=== PATIENT | male | born 1995 | race African-American/Black ===

== ENCOUNTER 2017-12-19 11:53 | Emergency (ER) | payer OTHER ==
[~2017-12-19] VITALS: Ht 188 cm; Wt 78.4 kg
[2017-12-19 11:58] VITALS: TEMP 37.1; Ht 188 cm; Wt 78.4 kg
[2017-12-19] MEDS ORDERED: ONDANSETRON 4MG OD TAB PO STA (12:12)
[2017-12-19] MEDS ORDERED: SODIUM CHLORIDE 0.9% 1000ML 1,000 ML IV STA ×2 (12:12→14:15)
[2017-12-19] MEDS ORDERED: DiphenhydrAMINE HCL 50 MG/ML VIAL IV STA (12:12)
--- NOTE | 2017-12-19 12:18 | EMERGENCY ROOM VISIT NOTE ---
History First contact with patient: 12:03 Chief Complaint: NAUSEA Stated Complaint: NAUSEA/VOMITING Nursing Triage Summary: nausea and vomiting over the past 2-3 days. this happened last year and I was placed on antibiotics for ? stomach ulcers. History of Present Illness The patient is a 22 year old male who presents to the Emergency Room with complaints of nausea starting today and vomiting x 3 days. He hasn't eaten anything today. His stools have been soft, non bloody. He denies any recent travel, any ingestion of foreign or new foods, or any new medications. Pt takes Truvada, started in July. Pt has had multiple episodes of episodes in the past few years, he has gotten [employer] for it. He smokes Marijuana approx 3- 4x per week , denies any other illicit substances. No significant PMHx. No sick contacts. Review of Systems See HPI for pertinent positives and negatives. A total of ten systems were reviewed and were otherwise negative. Constitutional: No fever, No chills, No weight loss ENT: No hearing loss Respiratory: No cough, No sputum, No shortness of breath, No dyspnea on exertion Cardiovascular: No chest pain Abdomen: + nausea, + vomiting, No pain, No diarrhea, No constipation Musculoskeletal: No joint pain Genitourinary - Male: No hematuria, No dysuria Neurologic: No memory loss Psychiatric: No depression symptoms Endocrine: No fatigue Social History Smoking Status: Never Smoker Current/Historical Medications Scheduled Emtricitabine-Tenofovir Disopr (Truvada 133-200 mg), 1 TAB PO DAILY Physical Exam Vital Signs Date Time Temp Pulse Resp B/P (MAP) Pulse Ox O2 Delivery O2 Flow Rate FiO2 12/19/17 14:07 75 18 143/100 98 Room Air 12/19/17 11:58 37.1 78 18 130/92 97 Room Air Physical Exam Gen: No acute distress. Thin male. HEENT: Head - normocephalic and atraumatic. Pupils are equal, round, and reactive to light. No nystagmus. Extraocular eye muscles are intact and sclera are anicteric. Ears - bilaterally patent canals with noninjected tympanic membranes and no evidence of hemotympanum. Nose - moist nasal mucosa without discharge. Mouth - moist buccal mucosa. Oropharynx is nonerythematous and there is no tonsillar exudate or edema noted. Neck: Supple; no JVD, nuchal rigidity, cervical lymphadenopathy, or auscultated bruits. Heart: Regular rate and rhythm. There is a normal S1 and S2 with no murmurs, clicks, or gallops appreciated. Lungs: Clear to auscultation bilaterally with no wheezes, rales, or rhonchi. Abdomen: Soft, completely nontender, nondistended, with good bowel sounds. There are no palpable pulsatile masses or hepatosplenomegaly. There is no guarding, rigidity, or rebound noted. Extremities: No evidence of cyanosis, clubbing, or edema. There are easily palpable peripheral pulses. Neuro:The patient is awake and alert, oriented to day, time, and place. Muscle strength is 5/5 in all 4 extremities. The patient has equal filter tender jelly strength and equal pedal push and pull. There are no cerebellar signs. Medical Decision & Procedures ER Provider Diagnostic Interpretation: KUB CLINICAL HISTORY: 22 years-old Male presenting with Abdominal Pain - eval for obstruction. TECHNIQUE: Single supine view of the abdomen was obtained. COMPARISON: None. FINDINGS: Nonobstructive bowel gas pattern. No gross pneumoperitoneum. Allowing for bowel gas and stool, no calcifications to suggest nephrolithiasis. Osseous structures normal. Lung bases clear. IMPRESSION: 1. No acute intra-abdominal pathology. Laboratory Results 12/19/17 12:20 Red Blood Count 5.19, Mean Corpuscular Volume 88.8, Mean Corpuscular Hemoglobin 30.8, Mean Corpuscular Hemoglobin Concent 34.7, Mean Platelet Volume 9.7, Neutrophils (%) (Auto) 76.1, Lymphocytes (%) (Auto) 18.2, Monocytes (%) (Auto) 5.3, Eosinophils (%) (Auto) 0.0, Basophils (%) (Auto) 0.2, Neutrophils # (Auto) 8.33, Lymphocytes # (Auto) 1.99, Monocytes # (Auto) 0.58, Eosinophils # (Auto) 0.00, Basophils # (Auto) 0.02 12/19/17 12:20 Test 12/19/17 12:20 White Blood Count 10.94 K/uL (4.8-10.8) Red Blood Count 5.19 M/uL (4.7-6.1) Hemoglobin 16.0 g/dL (14.0-18.0) Hematocrit 46.1 % (42-52) Mean Corpuscular Volume 88.8 fL (80-100) Mean Corpuscular Hemoglobin 30.8 pg (25-34) Mean Corpuscular Hemoglobin Concent 34.7 g/dl (32-36) Platelet Count 238 K/uL (130-400) Mean Platelet Volume 9.7 fL (7.4-10.4) Neutrophils (%) (Auto) 76.1 % Lymphocytes (%) (Auto) 18.2 % Monocytes (%) (Auto) 5.3 % Eosinophils (%) (Auto) 0.0 % Basophils (%) (Auto) 0.2 % Neutrophils # (Auto) 8.33 K/uL (1.4-6.5) Lymphocytes # (Auto) 1.99 K/uL (1.2-3.4) Monocytes # (Auto) 0.58 K/uL (0.11-0.59) Eosinophils # (Auto) 0.00 K/uL (0-0.5) Basophils # (Auto) 0.02 K/uL (0-0.2) RDW Standard Deviation 43.3 fL (36.4-46.3) RDW Coefficient of Variation 13.2 % (11.5-14.5) Immature Granulocyte % (Auto) 0.2 % Immature Granulocyte # (Auto) 0.02 K/uL (0.00-0.02) Anion Gap 10.0 mmol/L (3-11) Est Creatinine Clear Calc Drug Dose 142.0 ml/min Estimated GFR () 138.3 Estimated GFR (Non- 119.3 BUN/Creatinine Ratio 8.8 (10-20) Calcium Level 10.2 mg/dl (8.5-10.1) Total Bilirubin 0.5 mg/dl (0.2-1) Aspartate Amino Transf (AST/SGOT) 21 U/L (15-37) Alanine Aminotransferase (ALT/SGPT) 38 U/L (12-78) Alkaline Phosphatase 85 U/L (45-117) Total Protein 9.7 gm/dl (6.4-8.2) Albumin 4.5 gm/dl (3.4-5.0) Globulin 5.2 gm/dl (2.5-4.0) Albumin/Globulin Ratio 0.9 (0.9-2) Lipase 130 U/L (73-393) Medications Administered Medications (Trade) Dose Ordered Sig/Lacy Route Start Time Stop Time Status Last Admin Dose Admin Sodium Chloride 1,000 ml @ 999 mls/hr Q1H1M STAT IV 12/19/17 12:12 12/19/17 13:12 DC 12/19/17 12:37 999 MLS/HR Ondansetron HCl (Zofran Odt) 4 mg NOW STAT PO 12/19/17 12:12 12/19/17 12:13 DC 12/19/17 12:38 4 MG Diphenhydramine HCl (Benadryl Inj) 12.5 mg NOW STAT IV 12/19/17 12:12 12/19/17 12:13 DC 12/19/17 12:38 12.5 MG Sodium Chloride 1,000 ml @ 999 mls/hr Q1H1M STAT IV 12/19/17 14:15 12/19/17 15:15 DC 12/19/17 14:34 999 MLS/HR Prochlorperazine Edisylate 5 mg/ Syringe 5 ml @ 5 mls/min NOW STAT IV 12/19/17 14:28 12/19/17 14:29 DC 12/19/17 14:32 5 MLS/MIN Medical Decision The patient's care and disposition was discussed with Dr. Rivera, Attending ED Physician. This is a 22M with nausea. Differential diagnosis include gastroenteritis, food borne illness, infections, obstruction, pancreatitis, appendicitis, diverticulitis, inflammatory bowel disease, GI bleed, biliary pathology, toxicologic as well as others were entertained. Triage Nursing notes were reviewed. ED Course included an extensive history and physical exam, labs. 12:00pm - Pt was seen and examined by resident. Initial orders placed. 1L NSS , 4mg ODT Zofran and 12.5mg IV Benadryl. A KUB was also ordered. 12:30pm - Case discussed with attending, Dr. Rivera. Lipase was added on. 2:15pm - Results reviewed with patient. Pt is still feeling nauseous - will be given additional 1L NSS and 5mg IV Compazine. 3:00pm - Pt reports feeling better. Told to follow up with PCP in one week. Pt will be discharged with 12 tabs of Zofran sent to his pharmacy. Pt discharged in good condition. The pt was informed about the findings as listed above. All questions were answered. Return instructions were outlined and the patient was discharged in good condition. The patient was referred to PCP for recheck of the current condition. Head Trauma GCS Score: 15 Impression Primary Impression: Nausea Departure Information Dispostion Home / Self-Care Condition GOOD Referrals No Doctor, Assigned (PCP) Patient Instructions [facility] [employer] Additional Instructions Follow up with PCP within one week. We recommend cutting down on Marijuana use in order to prevent a recurrence in the future. Resident Involvement: Resident Care Provided Care Provided: Pediatric Care ED
--- NOTE | 2017-12-19 12:33 | EMERGENCY ROOM VISIT NOTE ---
ED Visit Note First contact with patient: 12:03 The patient was seen and examined with Dr. Nigel GLOVER. I agree with the history, physical and findings. Please see the note for dispositions and details.
[2017-12-19 12:38] LABS: BASO % 0.2 %; BASO ABS # 0.02 K/uL (0-0.2); HEMATOCRIT 46.1 % (42-52); IG# 0.02 K/uL (0.00-0.02); LYMPH % 18.2 %; LYMPH ABS # 1.99 K/uL (1.2-3.4); MEAN CELL VOLUME 88.8 fL (80-100); MEAN CORPUSCULAR HEMOGLOBIN 30.8 pg (25-34); MEAN CORPUSCULAR HGB CONC 34.7 g/dl (32-36); MEAN PLATELET VOLUME 9.7 fL (7.4-10.4); MONO % 5.3 %; MONO ABS # 0.58 K/uL (0.11-0.59); NEUT % 76.1 %; NEUT ABS # 8.33 K/uL (1.4-6.5); PLATELET COUNT 238 K/uL (130-400); RED CELL DISTRIBUTION WIDTH CV 13.2 % (11.5-14.5); RED CELL DISTRIBUTION WIDTH SD 43.3 fL (36.4-46.3); WHITE BLOOD COUNT 10.94 K/uL (4.8-10.8)
[2017-12-19 12:59] LABS: ALBUMIN 4.5 gm/dl (3.4-5.0); CALCIUM 10.2 mg/dl (8.5-10.1); CREATININE 0.92 mg/dl (0.60-1.40); POTASSIUM 3.7 mmol/L (3.5-5.1); TOTAL PROTEIN 9.7 gm/dl (6.4-8.2)
--- NOTE | 2017-12-19 13:26 | DIAGNOSTIC IMAGING REPORT ---
KUB CLINICAL HISTORY: 22 years-old Male presenting with Abdominal Pain - eval for obstruction. TECHNIQUE: Single supine view of the abdomen was obtained. COMPARISON: None. FINDINGS: Nonobstructive bowel gas pattern. No gross pneumoperitoneum. Allowing for bowel gas and stool, no calcifications to suggest nephrolithiasis. Osseous structures normal. Lung bases clear. IMPRESSION: 1. No acute intra-abdominal pathology. Electronically signed by: Joseph Corona M.D. 12/19/2017 1:24 PM Dictated Date/Time: 12/19/2017 1:23 PM
[2017-12-19] MEDS ORDERED: EMTR1TAB13 PO (13:48)
[2017-12-19] MEDS ORDERED: PROCHLORPERAZINE INJ 5 MG in SYRINGE 4 ML IV STA (14:28)
[2017-12-19] MEDS ORDERED: ONDANSETRON 4MG OD TAB PO PRN (14:45)
[2017-12-19] MEDS ORDERED: ONDA4TAB10 SL (15:31)
[2017-12-19 15:37] VITALS: BP 124/70; PULSE 66; O2SAT 98
== END 2017-12-19 15:53 | disposition home or self-care (01) ==
LOC: C.EDB 11:54 → C.EDA 15:53
DX: R11.0 Nausea (principal)

== ENCOUNTER 2017-12-21 09:39 | Emergency (ER) | payer OTHER ==
[~2017-12-21] VITALS: Ht 193 cm; Wt 78.5 kg
[~2017-12-21 09:39] MED LIST: EMTR1TAB13 PO; ONDA4TAB10 SL
[2017-12-21 09:46] VITALS: Ht 193 cm; Wt 78.5 kg
[2017-12-21] MEDS ORDERED: KETOROLAC TROMETHAMINE 30 MG/ML VIAL IV STA (10:03)
[2017-12-21] MEDS ORDERED: ONDANSETRON INJ 2 MG/ML 2 ML VIAL IV STA (10:03)
[2017-12-21 10:14] LABS: BASO % 0.2 %; BASO ABS # 0.02 K/uL (0-0.2); EOS % 0.1 %; EOS ABS # 0.01 K/uL (0-0.5); HEMATOCRIT 44.8 % (42-52); HEMOGLOBIN 15.8 g/dL (14.0-18.0); IG# 0.03 K/uL (0.00-0.02); LYMPH ABS # 2.18 K/uL (1.2-3.4); MEAN CELL VOLUME 88.7 fL (80-100); MEAN CORPUSCULAR HEMOGLOBIN 31.3 pg (25-34); MEAN CORPUSCULAR HGB CONC 35.3 g/dl (32-36); MEAN PLATELET VOLUME 9.8 fL (7.4-10.4); MONO % 7.3 %; NEUT % 72.1 %; NEUT ABS # 7.87 K/uL (1.4-6.5); PLATELET COUNT 235 K/uL (130-400); RED CELL DISTRIBUTION WIDTH CV 13.3 % (11.5-14.5); RED CELL DISTRIBUTION WIDTH SD 43.4 fL (36.4-46.3); WHITE BLOOD COUNT 10.91 K/uL (4.8-10.8)
--- NOTE | 2017-12-21 10:21 | EMERGENCY ROOM VISIT NOTE ---
History Report prepared by Kimberly: Israel Resendiz Under the Supervision of: Dr. Fuad Reid M.D. First contact with patient: 09:50 Chief Complaint: VOMITING Stated Complaint: VOMITING History of Present Illness The patient is a 22 year old male who presents to the Emergency Room with complaints of persistent vomiting beginning a few days ago. The patient reports that anything he eats comes back up. He notes an associated throbbing abdominal pain. He denies recent travel, medical problems, contact with those who are sick , eating anything abnormal, abdominal surgeries, trauma, or heavy lifting. He reports that he had a normal bowel movement prior to arrival. He denies testicular or scrotal swelling. He states that he rarely uses alcohol and never uses tobacco. He reports occasional marijuana use, with the last use being one week ago. The patient reports that he takes Truvada for HIV prevention and prophylaxis, but does not have a formal diagnosis. The patient was seen and evaluated this Thursday, showing a negative KUB, WBC of 10, normal kidney function, normal LFTs, and normal lipase. Source of History: patient Onset: a few days ago Quality: other (vomiting) Timing: other (persistent) Modifying Factors (Worsening): eating Associated Symptoms: + abdominal pain (throbbing) Note: denies recent travel, medical problems, contact with those who are sick, eating anything abnormal, abdominal surgeries, trauma, testicular or scrotal swelling, or heavy lifting Review of Systems See HPI for pertinent positives and negatives. A total of ten systems were reviewed and were otherwise negative. Past Medical & Surgical The patient reports that he takes Truvada for HIV prevention and prophylaxis, but does not have a formal diagnosis. Family History Patient reports no known family medical history. Social History Smoking Status: Never Smoker Smokeless Tobacco Use: No Alcohol Use: other (rarely) Drug Use: marijuana (occasional but not regularly) Occupation Status: [employer] student Current/Historical Medications Scheduled Emtricitabine-Tenofovir Disopr (Truvada 133-200 mg), 1 TAB PO DAILY Scheduled PRN Metoclopramide (Reglan), 10 MG PO Q6H PRN for Nausea Allergies Coded Allergies: No Known Allergies (Unverified , 12/21/17) Physical Exam Vital Signs Date Time Temp Pulse Resp B/P (MAP) Pulse Ox O2 Delivery O2 Flow Rate FiO2 12/21/17 12:40 75 18 131/74 100 12/21/17 11:45 37.1 78 14 118/66 98 Room Air 12/21/17 09:46 36.5 70 16 127/86 94 Room Air Physical Exam GENERAL: Awake, alert, well-appearing, NAD. Wearing glasses. HENT: Normocephalic, atraumatic. EYES: Normal conjunctiva. Sclera non-icteric. PERRL. No anisocoria. NECK: Supple. No nuchal rigidity. FROM. RESPIRATORY: CTAB, no rhonchi, wheezing, crackles CARDIAC: RRR, no MRG ABDOMEN: Soft, ND, tender to epigastric and RUQ region to palpation, positive Orellana's sign, BS+ MSK: No chest wall TTP, no LE edema NEURO: GCS 15, CN 2-12 intact, moves all 4s on command SKIN: No rash or jaundice noted. Medical Decision & Procedures ER Provider Diagnostic Interpretation: Radiology results as stated below per my review and radiologist interpretation: BILIARY ULTRASOUND CLINICAL HISTORY: Right upper quadrant abdominal pain COMPARISON STUDY: No previous studies for comparison. FINDINGS: The pancreas appears sonographically normal. The liver appears sonographically normal. There is no right-sided hydronephrosis. There is no ductal dilatation. The common bile duct measures 3.5 mm. There is diffuse shadowing from the gallbladder fossa consistent with a stone filled gallbladder. The technologist reports a positive sonographic Orellana sign. IMPRESSION: 1. Diffuse shadowing from the gallbladder fossa, likely secondary to a stone filled gallbladder. 2. Positive sonographic Orellana sign 3. No evidence of ductal dilatation Electronically signed by: Juvenal Cruz M.D. 12/21/2017 11:41 AM Dictated Date/Time: 12/21/2017 11:39 AM Laboratory Results 12/21/17 10:00 Red Blood Count 5.05, Mean Corpuscular Volume 88.7, Mean Corpuscular Hemoglobin 31.3, Mean Corpuscular Hemoglobin Concent 35.3, Mean Platelet Volume 9.8, Neutrophils (%) (Auto) 72.1, Lymphocytes (%) (Auto) 20.0, Monocytes (%) (Auto) 7.3, Eosinophils (%) (Auto) 0.1, Basophils (%) (Auto) 0.2, Neutrophils # (Auto) 7.87, Lymphocytes # (Auto) 2.18, Monocytes # (Auto) 0.80, Eosinophils # (Auto) 0.01, Basophils # (Auto) 0.02 12/21/17 10:00 Test 12/21/17 10:00 White Blood Count 10.91 K/uL (4.8-10.8) Red Blood Count 5.05 M/uL (4.7-6.1) Hemoglobin 15.8 g/dL (14.0-18.0) Hematocrit 44.8 % (42-52) Mean Corpuscular Volume 88.7 fL (80-100) Mean Corpuscular Hemoglobin 31.3 pg (25-34) Mean Corpuscular Hemoglobin Concent 35.3 g/dl (32-36) Platelet Count 235 K/uL (130-400) Mean Platelet Volume 9.8 fL (7.4-10.4) Neutrophils (%) (Auto) 72.1 % Lymphocytes (%) (Auto) 20.0 % Monocytes (%) (Auto) 7.3 % Eosinophils (%) (Auto) 0.1 % Basophils (%) (Auto) 0.2 % Neutrophils # (Auto) 7.87 K/uL (1.4-6.5) Lymphocytes # (Auto) 2.18 K/uL (1.2-3.4) Monocytes # (Auto) 0.80 K/uL (0.11-0.59) Eosinophils # (Auto) 0.01 K/uL (0-0.5) Basophils # (Auto) 0.02 K/uL (0-0.2) RDW Standard Deviation 43.4 fL (36.4-46.3) RDW Coefficient of Variation 13.3 % (11.5-14.5) Immature Granulocyte % (Auto) 0.3 % Immature Granulocyte # (Auto) 0.03 K/uL (0.00-0.02) Anion Gap 9.0 mmol/L (3-11) Est Creatinine Clear Calc Drug Dose 140.7 ml/min Estimated GFR () 136.5 Estimated GFR (Non- 117.8 BUN/Creatinine Ratio 7.0 (10-20) Calcium Level 9.9 mg/dl (8.5-10.1) Total Bilirubin 0.8 mg/dl (0.2-1) Direct Bilirubin 0.2 mg/dl (0-0.2) Aspartate Amino Transf (AST/SGOT) 17 U/L (15-37) Alanine Aminotransferase (ALT/SGPT) 33 U/L (12-78) Alkaline Phosphatase 85 U/L (45-117) Total Protein 9.4 gm/dl (6.4-8.2) Albumin 4.4 gm/dl (3.4-5.0) Lipase 285 U/L (73-393) Laboratory results reviewed by me Medications Administered Medications (Trade) Dose Ordered Sig/Lacy Route Start Time Stop Time Status Last Admin Dose Admin Ondansetron HCl (Zofran Inj) 4 mg NOW STAT IV 12/21/17 10:03 12/21/17 10:07 DC 12/21/17 10:18 4 MG Ketorolac Tromethamine (Toradol Inj) 30 mg NOW STAT IV 12/21/17 10:03 12/21/17 10:07 DC 12/21/17 10:19 30 MG Sodium Chloride 500 ml @ 999 mls/hr Q31M STAT IV 12/21/17 11:00 12/21/17 11:30 DC 12/21/17 11:00 999 MLS/HR Potassium Chloride (Klor-Con M10) 10 meq STK-MED ONCE .ROUTE 12/21/17 11:08 12/21/17 11:09 DC 12/21/17 11:41 10 MEQ Famotidine (Pepcid Tab) 20 mg NOW ONCE PO 12/21/17 12:00 12/21/17 12:02 DC 12/21/17 12:30 20 MG Al Hydroxide/Mg Hydroxide (Maalox Susp) 30 ml STK-MED ONCE .ROUTE 12/21/17 12:27 12/21/17 12:28 DC 12/21/17 12:30 30 ML Lidocaine HCl (Viscous Lidocaine 2% Soln) 20 ml STK-MED ONCE .ROUTE 12/21/17 12:27 12/21/17 12:28 DC 12/21/17 12:30 20 ML ECG Per My Interpretation Indication: vomiting Rate (beats per minute): 73 Rhythm: sinus rhythm Findings: other (Normal intervals and axis. No STS changes. TWI in V2.) ED Course 0958: The patient was evaluated in room B11B. A complete history and physical exam was performed. 1153: I consulted Amna Sowcik, PA-C: General Surgery. The nurse will call the patient today or tomorrow, and he will follow up with Dr. Sandoval. 1230: I reevaluated the patient. Discussed results and discharge instructions: He verbalized understanding and agreement. The patient is ready for discharge. Medical Decision Nursing notes reviewed. Ancillary studies and prior records reviewed. The patient is a 22 year old male who presents to the Emergency Room with complaints of persistent vomiting beginning a few days ago. Differential diagnosis: Etiologies such as gastroenteritis, food borne illness, infections, appendicitis , diverticulitis, inflammatory bowel disease, obstruction, GI bleed, biliary pathology, as well as others were entertained. Patient was seen and evaluated the bedside. 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 Patient does live in [place]. Patient denies any sort of infectious symptoms but has had some persistent abdominal discomfort which she describes as diffuse. The patient has had associated nausea with vomiting. Patient denies any sick contacts treatment well water, antibiotics, or other infectious symptoms. The patient also denies any recent trauma or heavy lifting. On exam the patient does have some right upper quadrant epigastric discomfort. Of note the patient does take Truvada for HIV prophylaxis and prevention but has no formal diagnosis of HIV or AIDS. Patient did have blood work completed along with right upper quadrant ultrasound. Patient was feeling improved thereafter although did have some mild upset stomach. Patient's ultrasound did show a positive Orellana sign and the patient of note noted a fair amount of shadow consistent with likely gallstones. There is no CBD dilatation. I did give the patient recommendations given his biliary colic. I also did discuss the case with the on-call general surgery physician acquisitions assistant who stated that she would make a note and the patient would be called either today or tomorrow for an outpatient follow-up appointment. The patient was told return if any worsening symptoms or can tolerate p.o. Patient was given strict follow-up, discharge, and return precautions. All questions were answered. Patient was deemed suitable for outpatient follow-up at this time. Patient agreed with the plan of care and was safely discharged home. Medication Reconcilliation Current Medication List: was personally reviewed by me Blood Pressure Screening Patient's blood pressure: Normal blood pressure Blood pressure disposition: Did not require urgent referral Consults Time Called: 1153 Consulting Physician: Amna Whitten PA-C: General Surgery Returned Call: 1156 I consulted Amna Whitten PA-C: General Surgery. The nurse will call the patient today or tomorrow, and he will follow up with Dr. Sandoval. Impression Primary Impression: Biliary colic Additional Impressions: Cholelithiasis Hypokalemia Scribe Attestation The scribe's documentation has been prepared under my direction and personally reviewed by me in its entirety. I confirm that the note above accurately reflects all work, treatment, procedures, and medical decision making performed by me. Departure Information Dispostion Home / Self-Care Prescriptions Metoclopramide (Reglan) 10 Mg Tab 10 MG PO Q6H Y for Nausea, #6 TAB NAUSEA Prov: Fuad Reid M.D. 12/21/17 Referrals Josh. Reagan M.D. (PCP) Forms HOME CARE DOCUMENTATION FORM, IMPORTANT VISIT INFORMATION Patient Instructions ED Gallstone W Biliary Colic, Gallstones Dc, My [facility] Additional Instructions Please return to the emergency department if you have worsening or recurrent symptoms not amenable to at-home treatment. Please call for a follow-up appointment with her primary care physician. Please take your medications as prescribed. If you have other concerns and/or complaints please feel free to also call your primary care physician's office or return the ED for further evaluation, management, and treatment. You may take tylenol 650 mg every 6 hours as needed for pain/fever unless told by your physician to not take it or have liver problems. Take your medications as prescribed. Please follow-up with your PCP about recommendations for Truvada and HIV prevention and prophylaxis. To help with your gallstone/reflux type symptoms please consider smaller more frequent meals. Avoid fatty or fried foods. Please do not lay down after eating. Consider avoiding spicy, citrus, peppermint, chocolate. Consider taking a PPI like Nexium 20 mg daily or an antihistamine like Pepcid 20 mg twice daily. Sitting upright may help improve your symptoms also. Do not lay down after eating or drinking. You may also try things like Tums or Maalox. You have been examined and treated today on an emergency basis only. This is not a substitute for, or an effort to provide, complete comprehensive medical care. It is impossible to recognize and treat all injuries or illnesses in a single emergency department visit. It is therefore important that you follow up closely with [facility], your PCP, and/or your specialist(s). Call as soon as possible for an appointment. Thank you for your time and consideration. I look forward to speaking with you again soon. Please don't hesitate to call us if you have any questions. Problem Qualifiers Additional Impressions: Cholelithiasis Cholelithiasis location: gallbladder Cholecystitis presence: without cholecystitis Biliary obstruction: without biliary obstruction Qualified Codes: K80.20 - Calculus of gallbladder without cholecystitis without obstruction
[2017-12-21 10:36] LABS: ALBUMIN 4.4 gm/dl (3.4-5.0); CALCIUM 9.9 mg/dl (8.5-10.1); CREATININE 0.93 mg/dl (0.60-1.40); POTASSIUM 3.4 mmol/L (3.5-5.1); TOTAL PROTEIN 9.4 gm/dl (6.4-8.2)
[2017-12-21] MEDS ORDERED: POTASSIUM CHLORIDE 20 MEQ TABCR PO STA (11:00)
[2017-12-21] MEDS ORDERED: SODIUM CHLORIDE 0.9% 500ML 500 ML IV STA (11:00)
[2017-12-21] MEDS ORDERED: POTASSIUM CHLORIDE 10 MEQ TABCR ONE (11:08)
--- NOTE | 2017-12-21 11:42 | DIAGNOSTIC IMAGING REPORT ---
BILIARY ULTRASOUND CLINICAL HISTORY: Right upper quadrant abdominal pain COMPARISON STUDY: No previous studies for comparison. FINDINGS: The pancreas appears sonographically normal. The liver appears sonographically normal. There is no right-sided hydronephrosis. There is no ductal dilatation. The common bile duct measures 3.5 mm. There is diffuse shadowing from the gallbladder fossa consistent with a stone filled gallbladder. The technologist reports a positive sonographic Orellana sign. IMPRESSION: 1. Diffuse shadowing from the gallbladder fossa, likely secondary to a stone filled gallbladder. 2. Positive sonographic Orellana sign 3. No evidence of ductal dilatation Electronically signed by: Juvenal Cruz M.D. 12/21/2017 11:41 AM Dictated Date/Time: 12/21/2017 11:39 AM
[2017-12-21 11:45] VITALS: TEMP 37.1
[2017-12-21] MEDS ORDERED: GI COCKTAIL PO STA (11:55)
[2017-12-21] MEDS ORDERED: FAMOTIDINE 20 MG TAB PO ONE (12:00)
[2017-12-21] MEDS ORDERED: METO-157 PO (12:14)
[2017-12-21] MEDS ORDERED: ALUMINUM/MAGNESIUM SUSP 30 ML UDC ONE (12:27)
[2017-12-21] MEDS ORDERED: LIDOCAINE HCL 2% VISC SOLN 20 ML UDC ONE (12:27)
[2017-12-21 12:40] VITALS: BP 131/74; PULSE 75; O2SAT 100
== END 2017-12-21 12:43 | disposition home or self-care (01) ==
LOC: C.EDB 09:42
DX: K80.20 Calculus of gallbladder without cholecystitis without obstruction (principal); E87.6 Hypokalemia; Z79.899 Other long term (current) drug therapy

== ENCOUNTER 2019-10-11 09:16 | Observation (INO) ==
[2019-10-11] MEDS ORDERED: ONDANSETRON INJ 2 MG/ML 2 ML VIAL IV STA (09:45)
[2019-10-11] MEDS ORDERED: SODIUM CHLORIDE 0.9% 1000ML 1,000 ML IV ONE (09:45)
[2019-10-11] MEDS ORDERED: ACETAMINOPHEN 500 MG TAB PO STA (10:02)
--- NOTE | 2019-10-11 10:14 | Emergency Department Note ---
History of Present Illness General Chief complaint: Abdominal Pain Stated complaint: POS COVID, ILLNESS Time Seen by Provider: 10/11/19 09:40 History of Present Illness Provider complaint: Nausea and vomiting Onset (ago): day(s) 2 Location: abdomen Maximum Pain Intensity: 7 Current Pain Intensity: 7 Quality: + other (Cramping) Relieved By: + none 24-year-old male presents emergency department with nausea and vomiting. He states that he was seen in the emergency department yesterday and went home and smokes marijuana and then his nausea and vomiting started getting worse. He reports vomiting 12 times since yesterday. No hematemesis coffee-ground emesis or bilious vomiting. He notes he spiked a fever also today. Home Medications Home Medications Medication Instructions Recorded Confirmed Type emtricitabine-tenofovir (TDF) 1 tab PO QAM #0 12/19/17 10/11/19 History [Truvada] ondansetron 4 mg PO Q8H PRN #30 tab 10/10/19 10/11/19 Rx Allergies Allergy/AdvReac Type Severity Reaction Status Date / Time No Known Allergies Allergy Unverified 10/11/19 12:39 Past Med/Surg History Medical History COVID-19 virus detected On pre-exposure prophylaxis for HIV Proctitis Surgical History History of cholecystectomy (Acute) History of surgery (Acute) left tibia and fibula Social History Preferred Language: Indonesian Communication Ability: Effective 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 Beliefs That Will Affect Care: None marital status: Single Current Living Situation: Alone current occupational status: student Feels Safe at Home: Yes Smoking Status: Never smoker Second Hand Exposure: No ; Hx Alcohol Use: Yes Alcohol type: beer, wine and hard liquor Hx Substance Use: Yes substance use type: marijuana Sexual Orientation Comment: homosexual Sexual Activity: has been sexually active within the last 12 months Review of Systems A total of 10 systems reviewed and were otherwise negative Physical Exam Vital Signs Vital Signs - 24 hr 10/11/19 09:35 10/11/19 11:28 10/11/19 12:00 Temperature 38.1 C H Temperature Source Oral Pulse Rate 59 L 86 Pulse Rate [Right Finger] 59 L 74 Pulse Rate from SpO2 Sensor 85 Pulse Rhythm Regular Pulse Rhythm [Right Finger] Regular Pulse Strength [Right Finger] Normal Respiratory Rate 18 16 18 Respiratory Effort / Characteristics Non-Labored Spontaneous Respiratory Depth Normal Respiratory Pattern Regular Blood Pressure 160/110 H 127/79 Blood Pressure [Left Arm] 120/66 Blood Pressure [Right Arm] 160/110 H Blood Pressure Mean 126 90 Blood Pressure Mean [Left Arm] 84 Blood Pressure Mean [Right Arm] 126 Pulse Oximetry 100 100 99 Oxygen Delivery Method Room Air Room Air Room Air Sepsis Recent Fever Within 48 Hours Yes Sepsis Action Taken by Nursing No Action Required 10/11/19 12:42 10/11/19 13:00 10/11/19 13:24 Temperature 37.6 C H Temperature Source Oral Pulse Rate 87 77 Pulse Rate [Right Finger] Pulse Rate from SpO2 Sensor 91 H 83 Pulse Rhythm Pulse Rhythm [Right Finger] Pulse Strength [Right Finger] Respiratory Rate 15 13 Respiratory Effort / Characteristics Respiratory Depth Respiratory Pattern Blood Pressure 127/80 137/84 Blood Pressure [Left Arm] Blood Pressure [Right Arm] Blood Pressure Mean 90 98 Blood Pressure Mean [Left Arm] Blood Pressure Mean [Right Arm] Pulse Oximetry 97 99 Oxygen Delivery Method Room Air Room Air Sepsis Recent Fever Within 48 Hours Sepsis Action Taken by Nursing 10/11/19 13:30 10/11/19 14:00 10/11/19 14:30 Temperature Temperature Source Pulse Rate 85 69 69 Pulse Rate [Right Finger] Pulse Rate from SpO2 Sensor 83 67 70 Pulse Rhythm Pulse Rhythm [Right Finger] Pulse Strength [Right Finger] Respiratory Rate 16 13 19 Respiratory Effort / Characteristics Respiratory Depth Respiratory Pattern Blood Pressure 136/81 141/76 H Blood Pressure [Left Arm] Blood Pressure [Right Arm] Blood Pressure Mean 99 92 Blood Pressure Mean [Left Arm] Blood Pressure Mean [Right Arm] Pulse Oximetry 99 99 99 Oxygen Delivery Method Room Air Room Air Room Air Sepsis Recent Fever Within 48 Hours Sepsis Action Taken by Nursing 10/11/19 15:00 10/11/19 15:30 10/11/19 16:30 Temperature Temperature Source Pulse Rate 76 71 72 Pulse Rate [Right Finger] Pulse Rate from SpO2 Sensor 78 71 91 H Pulse Rhythm Pulse Rhythm [Right Finger] Pulse Strength [Right Finger] Respiratory Rate 11 L 13 19 Respiratory Effort / Characteristics Respiratory Depth Respiratory Pattern Blood Pressure 151/95 H 138/81 132/80 Blood Pressure [Left Arm] Blood Pressure [Right Arm] Blood Pressure Mean 99 93 90 Blood Pressure Mean [Left Arm] Blood Pressure Mean [Right Arm] Pulse Oximetry 98 99 96 Oxygen Delivery Method Room Air Room Air Room Air Sepsis Recent Fever Within 48 Hours Sepsis Action Taken by Nursing 10/11/19 17:00 Temperature Temperature Source Pulse Rate 85 Pulse Rate [Right Finger] Pulse Rate from SpO2 Sensor 83 Pulse Rhythm Pulse Rhythm [Right Finger] Pulse Strength [Right Finger] Respiratory Rate 19 Respiratory Effort / Characteristics Respiratory Depth Respiratory Pattern Blood Pressure 133/102 H Blood Pressure [Left Arm] Blood Pressure [Right Arm] Blood Pressure Mean 110 Blood Pressure Mean [Left Arm] Blood Pressure Mean [Right Arm] Pulse Oximetry 99 Oxygen Delivery Method Sepsis Recent Fever Within 48 Hours Sepsis Action Taken by Nursing Physical Exam GENERAL: He is oriented to person, place, and time. He appears well-developed and well-nourished. He does not appear distressed. HENT: Exam performed. - Head: Normocephalic and atraumatic. - Right Ear: External ear normal. No mastoid tenderness. - Left Ear: External ear normal. No mastoid tenderness. - Mouth/Throat: The oropharynx is clear and moist. No trismus in the jaw. No dental abscesses or uvula swelling. No oropharyngeal exudate or tonsillar abscesses. EYES: Conjunctivae and EOM are normal. Pupils are equal, round, and reactive to light. Right eye exhibits no discharge. Left eye exhibits no discharge. No scleral icterus. NECK: Normal range of motion. Neck supple. No JVD present. No spinous process tenderness present. No carotid bruit present. No rigidity. No tracheal deviation and normal range of motion present. No Brudzinski's sign and no Kernig's sign noted. CV: Normal rate, regular rhythm, normal heart sounds and intact distal pulses. There is no peripheral edema. Palpable radial pulses bue. PULM/CHEST: Effort normal and breath sounds normal. No respiratory distress. No stridor. He has no wheezes. He has no rales. - Chest Wall: He exhibits no tenderness. ABD: The abdomen is soft. Bowel sounds are normal. He has no distension. No mass is present. There is no tenderness. There is no rebound, no guarding, no Orellana's sign and no tenderness at McBurney's point. Rovsig negative. MUSC/SKEL: Normal range of motion. There is no peripheral edema, tenderness or deformity. LYMPH: No cervical adenopathy. NEURO: He is alert and oriented to person, place, and time. He has normal strength. No cranial nerve deficit or sensory deficit. Coordination and gait normal. GCS eye subscore is 4. GCS verbal subscore is 5. GCS motor subscore is 6. Cerebellar tests wnl. SKIN: Skin is warm and dry. He is not diaphoretic. PSYCH: He has a normal mood and affect. Behavior is normal. Judgment and thought content normal. Course Course 1000: The patient was evaluated in room B8. A complete history and physical exam was performed. EMR reviewed. I did see the patient yesterday. His COVID-19 screening from yesterday was negative. His labs yesterday showed mild leukocytosis. CT of the abdomen was negative. Patient is homosexual and states he is never tested positive for HIV. He is on prep for prophylaxis. Patient states he has never tested positive for HIV and gets tested every 3 months, last test was 3 months ago. I did asked the patient if he wants to be screened here today for HIV which she was in agreement to. 1315: Vital signs proved. Patient's labs within normal limits with the exception of a potassium of 3.2. White blood cell count has improved. Patient tolerating p.o. in the emergency department. Patient still reporting pain and nausea. It is unclear if this is due to the patient's marijuana consumption however would not explain his fever. Given the recurrent visits and the patient still feeling uncomfortable with nausea, the patient will be admitted for intractable nausea and vomiting.[facility] hospitalist Dr. Nichole was notified of the patient. Administered Medications Discontinued Medications Acetaminophen (Tylenol) 1,000 mg PO NOW STA Stop: 10/11/19 10:03 Last Admin: 10/11/19 11:30 Dose: Not Given Documented by: [id number] Acetaminophen (Ofirmev) 1,000 mg IV ONCE STA Stop: 10/11/19 10:41 Last Admin: 10/11/19 11:40 Dose: 1,000 mg Documented by: [id number] Al Hydrox/Mg Hydrox/Simethicone () 1 dose PO ONE ONE Stop: 10/11/19 14:01 Last Admin: 10/11/19 14:14 Dose: 1 dose Documented by: [id number] Sodium Chloride (Nss 1000ml) 1,000 mls @ 999 mls/hr IV .Q1H1M ONE Stop: 10/11/19 10:45 Last Infusion: 10/11/19 12:21 Dose: 0 mls/hr Documented by: [id number] Admin: 10/11/19 10:37 Dose: 999 mls/hr Documented by: [id number] Ketorolac Tromethamine (Toradol) 15 mg IV NOW STA Stop: 10/11/19 10:41 Last Admin: 10/11/19 11:37 Dose: 15 mg Documented by: [id number] Ketorolac Tromethamine (Toradol) 15 mg IV NOW STA Stop: 10/11/19 14:00 Last Admin: 10/11/19 14:11 Dose: 15 mg Documented by: [id number] Ondansetron HCl (Zofran) 4 mg IV NOW STA Stop: 10/11/19 09:46 Last Admin: 10/11/19 10:37 Dose: 4 mg Documented by: [id number] Potassium Chloride (Klor-Con M10) 40 meq PO NOW STA Stop: 10/11/19 14:00 Last Admin: 10/11/19 14:13 Dose: 40 meq Documented by: [id number] Medical Decision Making Laboratory Data Result diagrams: 10/11/19 10:09 10/11/19 10:09 Lab Results 10/11/19 10/11/19 10/11/19 Range/Units 10:09 10:09 10:09 WBC 11.23 H (4.8-10.8) K/uL RBC 4.74 (4.7-6.1) M/uL Hgb 14.8 (14.0-18.0) g/dL Hct 43.0 (42-52) % MCV 90.7 (80-100) fL MCH 31.2 (25-34) pg MCHC 34.4 (32-36) g/dL RDW Std Deviation 43.8 (36.4-46.3) fL RDW Coeff of Marilyn 13.2 (11.5-14.5) % Plt Count 209 (130-400) K/uL MPV 10.1 (7.4-10.4) fL Immature Gran % (Auto) 0.2 % Neut % (Auto) 83.0 % Lymph % (Auto) 12.7 % [place] % (Auto) 4.0 % Eos % (Auto) 0.0 % Baso % (Auto) 0.1 % Immature Gran # (Auto) 0.02 (0.00-0.02) K/uL Neut # (Auto) 9.32 H (1.4-6.5) K/uL Lymph # (Auto) 1.43 (1.2-3.4) K/uL [place] # (Auto) 0.45 (0.11-0.59) K/uL Eos # (Auto) 0.00 (0-0.5) K/uL Baso # (Auto) 0.01 (0-0.2) K/uL Sodium 135 L (136-145) mmol/L Potassium 3.2 L (3.5-5.1) mmol/L Chloride 104 (98-107) mmol/L Carbon Dioxide 24 (21-32) mmol/L Anion Gap 7.0 (3-11) BUN 5 L (7-18) mg/dl Creatinine 0.85 (0.6-1.4) mg/dl Est Cr Clr Drug Dosing 158.5 ml/min Est GFR ( Amer) 143.4 Est GFR (Non-Af Amer) 123.7 BUN/Creatinine Ratio 6.4 L (10-20) Glucose 105 H (70-99) mg/dl Lactate (0.4-2.0) mmol/L Calcium 9.6 (8.5-10.1) mg/dl Total Bilirubin 0.9 (0.2-1) mg/dl Direct Bilirubin 0.2 (0-0.2) mg/dl AST 16 (15-37) U/L ALT 43 (12-78) U/L Alkaline Phosphatase 69 (45-117) U/L Total Protein 8.3 H (6.4-8.2) gm/dl Albumin 4.4 (3.4-5.0) gm/dl Lipase 136 (73-393) U/L Adenovirus (PCR) (NotDetected) B. pertussis DNA (PCR) (NotDetected) B.parapertussis DNA PCR (NotDetected) C. pneumoniae DNA (PCR) (NotDetected) Coronavirus OC43 (PCR) (NotDetected) Coronavirus HKU1 (PCR) (NotDetected) Coronavirus 229E (PCR) (NotDetected) Coronavirus NL63 (PCR) (NotDetected) HIV 1&2 Ab/P24 Ag 4thGn Neg (Neg) Human Metapneumovir PCR (NotDetected) Influenza Type A (PCR) (NotDetected) Influenza Type B (PCR) (NotDetected) M. pneumoniae (PCR) (NotDetected) Parainfluenza 1 (PCR) (NotDetected) Parainfluenza 2 (PCR) (NotDetected) Parainfluenza 3 (PCR) (NotDetected) Parainfluenza 4 (PCR) (NotDetected) RSV (PCR) (NotDetected) Entero/Rhino (PCR) (NotDetected) 10/11/19 10/11/19 Range/Units 10:38 11:32 WBC (4.8-10.8) K/uL RBC (4.7-6.1) M/uL Hgb (14.0-18.0) g/dL Hct (42-52) % MCV (80-100) fL MCH (25-34) pg MCHC (32-36) g/dL RDW Std Deviation (36.4-46.3) fL RDW Coeff of Marilyn (11.5-14.5) % Plt Count (130-400) K/uL MPV (7.4-10.4) fL Immature Gran % (Auto) % Neut % (Auto) % Lymph % (Auto) % [place] % (Auto) % Eos % (Auto) % Baso % (Auto) % Immature Gran # (Auto) (0.00-0.02) K/uL Neut # (Auto) (1.4-6.5) K/uL Lymph # (Auto) (1.2-3.4) K/uL [place] # (Auto) (0.11-0.59) K/uL Eos # (Auto) (0-0.5) K/uL Baso # (Auto) (0-0.2) K/uL Sodium (136-145) mmol/L Potassium (3.5-5.1) mmol/L Chloride (98-107) mmol/L Carbon Dioxide (21-32) mmol/L Anion Gap (3-11) BUN (7-18) mg/dl Creatinine (0.6-1.4) mg/dl Est Cr Clr Drug Dosing ml/min Est GFR ( Amer) Est GFR (Non-Af Amer) BUN/Creatinine Ratio (10-20) Glucose (70-99) mg/dl Lactate 1.5 (0.4-2.0) mmol/L Calcium (8.5-10.1) mg/dl Total Bilirubin (0.2-1) mg/dl Direct Bilirubin (0-0.2) mg/dl AST (15-37) U/L ALT (12-78) U/L Alkaline Phosphatase (45-117) U/L Total Protein (6.4-8.2) gm/dl Albumin (3.4-5.0) gm/dl Lipase (73-393) U/L Adenovirus (PCR) Not Detected (NotDetected) B. pertussis DNA (PCR) Not Detected (NotDetected) B.parapertussis DNA PCR Not Detected (NotDetected) C. pneumoniae DNA (PCR) Not Detected (NotDetected) Coronavirus OC43 (PCR) Not Detected (NotDetected) Coronavirus HKU1 (PCR) Not Detected (NotDetected) Coronavirus 229E (PCR) Not Detected (NotDetected) Coronavirus NL63 (PCR) Not Detected (NotDetected) HIV 1&2 Ab/P24 Ag 4thGn (Neg) Human Metapneumovir PCR Not Detected (NotDetected) Influenza Type A (PCR) Not Detected (NotDetected) Influenza Type B (PCR) Not Detected (NotDetected) M. pneumoniae (PCR) Not Detected (NotDetected) Parainfluenza 1 (PCR) Not Detected (NotDetected) Parainfluenza 2 (PCR) Not Detected (NotDetected) Parainfluenza 3 (PCR) Not Detected (NotDetected) Parainfluenza 4 (PCR) Not Detected (NotDetected) RSV (PCR) Not Detected (NotDetected) Entero/Rhino (PCR) Not Detected (NotDetected) Imaging Data Radiologist's Impression: PA CHEST RADIOGRAPH AND UPRIGHT AND SUPINE AP RADIOGRAPHS OF THE ABDOMEN CLINICAL HISTORY: Abdominal pain. Vomiting. COMPARISON STUDY: Chest radiograph and CT of the abdomen and pelvis October 10, 2019. FINDINGS: Lung volumes are normal. Lungs are clear. No pneumothorax or pleural effusion is noted. Cardiac size is normal. Mediastinal contours are normal. There are cholecystectomy clips. There is no free air. There is no evidence for a bowel obstruction. No urinary calculi are identified. IMPRESSION: 1. No free air or evidence of bowel obstruction. 2. No acute cardiopulmonary findings. ACT 112: Negative or not required by law. Electronically signed by: Gigi Olmos M.D. 10/11/2019 12:34 PM Dictated: 10/11/19 1233 Transcribed: 10/11/19 1233 [facility] Narrative 1000: The patient was evaluated in room B8. A complete history and physical exam was performed. EMR reviewed. I did see the patient yesterday. His COVID-19 screening from yesterday was negative. His labs yesterday showed mild leukocytosis. CT of the abdomen was negative. Patient is homosexual and states he is never tested positive for HIV. He is on prep for prophylaxis. Patient states he has never tested positive for HIV and gets tested every 3 months, last test was 3 months ago. I did asked the patient if he wants to be screened here today for HIV which she was in agreement to. 1315: Vital signs proved. Patient's labs within normal limits with the exception of a potassium of 3.2. White blood cell count has improved. Patient tolerating p.o. in the emergency department. Patient still reporting pain and nausea. It is unclear if this is due to the patient's marijuana consumption however would not explain his fever. Given the recurrent visits and the patient still feeling uncomfortable with nausea, the patient will be admitted for intractable nausea and vomiting.[facility] hospitalist Dr. Nichole was notified of the patient. Impression & Plan Intractable nausea and vomiting, Cannabis abuse Discharge Plan Visit Data Chief Complaint: Abdominal Pain Stated Complaint: POS COVID, ILLNESS ED Provider: Hollis Chin Discharge Problem: Intractable nausea and vomiting, Cannabis abuse Patient Disposition: Being Evaluated by Hospitalist Forms Stand Alone Forms: My [facility] Prescriptions Prescriptions: No Action Truvada 200-300 mg Tablet 1 tab PO QAM Qty: 0 RF: 0 ondansetron 4 mg tablet,disintegrating 4 mg PO Q8H PRN (Reason: nausea and vomiting) Qty: 30 RF: 0 Referrals Referrals: Genaro Matos [Primary Care Provider] -
[2019-10-11 10:29] LABS: Basophils # (auto) 0.01 K/uL (0-0.2); Basophils % (auto) 0.1 %; Hemoglobin 14.8 g/dL (14.0-18.0); Immature Granulocytes # (auto) 0.02 K/uL (0.00-0.02); Immature Granulocytes % (auto) 0.2 %; Lymphocytes # (auto) 1.43 K/uL (1.2-3.4); Lymphocytes % (auto) 12.7 %; Mean Corpuscular Hemoglobin 31.2 pg (25-34); Mean Corpuscular Hgb Conc 34.4 g/dL (32-36); Mean Corpuscular Volume 90.7 fL (80-100); Mean Platelet Volume 10.1 fL (7.4-10.4); Monocytes # (auto) 0.45 K/uL (0.11-0.59); Neutrophils # (auto) 9.32 K/uL (1.4-6.5); Platelet Count 209 K/uL (130-400); RDW Coefficient of Variation 13.2 % (11.5-14.5); RDW Standard Deviation 43.8 fL (36.4-46.3); Red Blood Count 4.74 M/uL (4.7-6.1); White Blood Count 11.23 K/uL (4.8-10.8)
[2019-10-11] MEDS ORDERED: ACETAMINOPHEN 1000 MG/100 ML IV IV STA (10:40)
[2019-10-11] MEDS ORDERED: KETOROLAC TROMETHAMINE 15 MG/ML VIAL IV STA ×2 (10:40→13:59)
[2019-10-11 10:48] LABS: Albumin Level 4.4 gm/dl (3.4-5.0); BUN Creatinine Ratio 6.4 (10-20); Bilirubin Direct 0.2 mg/dl (0-0.2); Calcium 9.6 mg/dl (8.5-10.1); Creatinine Clr Calc Pharmacy 158.5 ml/min; Est GFR (African American) 143.4; Est GFR (Non-African American) 123.7; Potassium 3.2 mmol/L (3.5-5.1)
[2019-10-11 10:51] LABS: Bilirubin,Total 0.9 mg/dl (0.2-1); Total Protein 8.3 gm/dl (6.4-8.2)
--- NOTE | 2019-10-11 12:36 | XRay Report ---
PA CHEST RADIOGRAPH AND UPRIGHT AND SUPINE AP RADIOGRAPHS OF THE ABDOMEN CLINICAL HISTORY: Abdominal pain. Vomiting. COMPARISON STUDY: Chest radiograph and CT of the abdomen and pelvis October 10, 2019. FINDINGS: Lung volumes are normal. Lungs are clear. No pneumothorax or pleural effusion is noted. Ca rdiac size is normal. Mediastinal contours are normal. There are cholecystectomy clips. There is no f ree air. There is no evidence for a bowel obstruction. No urinary calculi are identified. IMPRESSION: 1. No free air or evidence of bowel obstruction. 2. No acute cardiopulmonary findings. ACT 112: Negative or not required by law. Electronically signed by: Gigi Olmos M.D. 10/11/2019 12:34 PM
[2019-10-11 13:14] LABS: Adenovirus PCR Not Detected (NotDetected); Bordetella parapertussis PCR Not Detected (NotDetected); Bordetella pertussis PCR Not Detected (NotDetected); Chlamydia pneumoniae PCR Not Detected (NotDetected); Coronavirus 229E PCR Not Detected (NotDetected); Coronavirus HKU1 PCR Not Detected (NotDetected); Coronavirus NL63 PCR Not Detected (NotDetected); Coronavirus OC43PCR Not Detected (NotDetected); Human Metapneumovirus PCR Not Detected (NotDetected); Influenza A PCR Not Detected (NotDetected); Influenza B PCR Not Detected (NotDetected); Mycoplasma pneumoniae PCR Not Detected (NotDetected); Parainfluenza Virus 1 PCR Not Detected (NotDetected); Parainfluenza Virus 2 PCR Not Detected (NotDetected); Parainfluenza Virus 3 PCR Not Detected (NotDetected); Parainfluenza Virus 4 PCR Not Detected (NotDetected); Respiratory Syncytial VirusPCR Not Detected (NotDetected); Rhinovirus/Enterovirus PCR Not Detected (NotDetected)
[2019-10-11] MEDS ORDERED: POTASSIUM CHLORIDE 10 MEQ TABCR PO STA (13:59)
[2019-10-11] MEDS ORDERED: GI COCKTAIL ED USE PO ONE (14:00)
--- NOTE | 2019-10-11 14:50 | History & Physical Report ---
Date of Service October 11, 2019 Assessment & Plan (1) Abdominal pain: Generalized, leading to RLQ pain with fever concerning for appendicitis. CT yesterday negative for this but was without oral contrast in a thin patient. To avoid further radiation, will evaluate again with ultrasound to assess for appendicitis. Recent history of proctitis however no pain/pruritus/pus (pain on BM present with prior episode) and no CT changes to suggest this yesterday (proctitis present on imaging in August). Stool cultures as below. UA pending (negative for infection yesterday but ketones 3+) - no calculi on AXR Acetaminophen, Toradol, Morphine for pain. (2) Fever: COVID-19 testing negative yesterday (previously positive in August). No upper respiratory symptoms to suggest need for retesting. Urine chlamydia/gonorrhea testing pending from 10/09. HIV Combo Ab/P24 Ag negative Differential the same as abdominal pain above. Acetaminophen PRN for fever (3) Intractable vomiting: Suspected due to bowel etiology as above Ondansetron IV Q4H PRN, Phenergan 12.5mg IV q6h PRN Given concurrent with fever feel this is less likely secondary to his marijuana use (4) Diarrhea: Stool culture Non-watery therefore will defer c. diff testing (5) On pre-exposure prophylaxis for HIV: Continue his usual [facility] Admission and Anticipated Discharge Date Admission Date: 10/11/2019 History of Present Illness Primary Care Provider: Genaro Matos Lasha Fletcher is a 24 year old male who presents to the ER with fever and ongoing nausea, vomiting, abdominal pain and occasional diarrhea for the past 4 days. He was discharged from the ER yesterday with similar symptoms but no fever. CT A/P at that time showed normal appendix, no bowel wall thickening or obstruction, no hydronephrosis. He was discharged with ondansetron but despite taking this continued to have nausea and vomiting today. He does admit to smoking marijuana after being discharged but does not think this contributed towards his current symptoms and is concerned his marijuana use was blamed for prior episodes of nausea and vomiting which subsequently turned out to be cholelithiasis. He was given IV ondansetron in the ER he currently not feeling nauseous when seen but still having significant abdominal pain. For past 4 days abdominal pain has been constant and generalized to his whole abdomen but today more localized in RLQ. Current severity 2/10, at worst 9/10. No radiation. Associated loose stool, once a day in AM, semi-solid. He reports having similar symptoms in August and diagnosed with proctitis at that time based on CT findings -> treated with doxycycline and one dose of Rocephin. However he was having anal pain at that time which he is not currently experiencing. He reports receiving anal sex once after this but his partner was using protection and this was in mid-September. He is due a colonoscopy as follow up after the proctitis episode in approximately 1 week. No sore throat, upper respiratory symptoms, shortness of breath, chest pain, dysuria, change in urine frequency/smell. Allergies Allergy/AdvReac Type Severity Reaction Status Date / Time No Known Allergies Allergy Unverified 10/11/19 12:39 Home Medications Home Medications Medication Instructions Recorded Confirmed Type emtricitabine-tenofovir (TDF) 1 tab PO QAM #0 12/19/17 10/11/19 History [Truvada] ondansetron 4 mg PO Q8H PRN #30 tab 10/10/19 10/11/19 Rx Past Med/Surg History Medical History COVID-19 virus detected On pre-exposure prophylaxis for HIV Proctitis Surgical History History of cholecystectomy (Acute) History of surgery (Acute) left tibia and fibula Social History Preferred Language: Bahraini Communication Ability: Effective Lining Cutter Required: No Beliefs That Will Affect Care: None marital status: Single Current Living Situation: Alone Current Living Situation Comment: Apartment current occupational status: student Other Information That Helps Us Care for You: No Feels Safe at Home: Yes Safety Concerns: Feels Safe At This Time Smoking Status: Never smoker Second Hand Exposure: No ; Hx Alcohol Use: Yes Alcohol type: beer, wine and hard liquor Hx Substance Use: No Sexual Orientation Comment: homosexual Sexual Activity: has been sexually active within the last 12 months Review of Systems Review of Systems: All systems reviewed & are unremarkable except as noted in HPI & below Physical Exam Constitutional: WD/WN, vitals as above Eyes: + anicteric sclerae; normal pupil size ENMT: external ear and nose normal, oropharynx normal Neck: trachea midline, no thyromegaly Respiratory: normal respiratory effort, lungs clear to auscultation Cardiovascular: RRR, no murmur, no edema Gastrointestinal (Abdomen): Inspection/Auscultation: abdomen normal to inspection and normal bowel sounds Percussion/Palpation: + abdomen tender (RLQ, mild elsewhere) and abdomen soft; no guarding and abdomen not rigid Musculoskeletal: no cyanosis or clubbing, extremities motor strength 5/5 Skin: no rashes, warm and dry Neurologic: moves all extremities and awake; not confused Psychiatric: A+Ox3, euthymic affect Genitourinary: no CVA tenderness Results & Data Results & Data ([facility]) Vital Signs (Past 12 Hours) Vital Signs Temp Pulse Pulse Resp BP BP BP 10/11/19 14:00 69 13 136/81 10/11/19 13:30 85 16 10/11/19 13:24 37.6 C H 10/11/19 13:00 77 13 137/84 10/11/19 12:42 87 15 127/80 10/11/19 12:00 86 18 127/79 10/11/19 11:28 74 16 120/66 10/11/19 09:35 38.1 C H 59 L 59 L 18 160/110 H 160/110 H Pulse Ox 10/11/19 14:00 99 10/11/19 13:30 99 10/11/19 13:24 10/11/19 13:00 99 10/11/19 12:42 97 10/11/19 12:00 99 10/11/19 11:28 100 10/11/19 09:35 100 Diagnostic Findings PA CHEST RADIOGRAPH AND UPRIGHT AND SUPINE AP RADIOGRAPHS OF THE ABDOMEN IMPRESSION: 1. No free air or evidence of bowel obstruction. 2. No acute cardiopulmonary findings. Code Status & VTE Plan Code Status Full VTE Prophylaxis Plan VTE Prophylaxis will be ordered: No Reason for no VTE drug order: Treatment not indicated Reason for no VTE mechanical prophylaxis: Treatment not indicated PG Care Time/CCT Total # of Minutes Spent Total Time Spent with Patient: Total time spent is greater than 50% in coordination of care (as documented) at patient's floor/unit and/or counseling patient: Coding Level of Care Code 89338 OBS Care - Level 2 Diagnoses Abdominal pain R10.9 Abdominal location: unspecified location Fever R50.9 Intractable vomiting R11.10 Diarrhea R19.7 On pre-exposure prophylaxis for HIV Z79.899 (1) Abdominal pain Abdominal location: unspecified location Qualified Code(s): R10.9 - Unspecified abdominal pain
--- NOTE | 2019-10-11 16:29 | Ultrasound Report ---
APPENDIX ULTRASOUND HISTORY: Right lower quadrant pain. ?appendicitis COMPARISON: None. FINDINGS: Transabdominal scanning of the right lower quadrant was performed. The appendix was not identified. T here are no fluid collections or masses within the right lower quadrant. IMPRESSION: The appendix was not identified. ACT 112: Negative or not required by law. Electronically signed by: Dominic Humphrey M.D. 10/11/2019 4:28 PM
[2019-10-11] MEDS ORDERED: ALUMINUM/MAGNESIUM SUSP 30 ML UDC PO PRN (18:24)
[2019-10-11] MEDS ORDERED: ACETAMINOPHEN 325 MG TAB PO PRN (18:24)
[2019-10-11] MEDS ORDERED: MAGNESIUM HYDROXIDE SUSP 30 ML UDC PO PRN (18:24)
[2019-10-11] MEDS ORDERED: POLYETHYLENE (MIRALAX) 17 GM PACK PO PRN (18:24)
[2019-10-11] MEDS ORDERED: KETOROLAC TROMETHAMINE 15 MG/ML VIAL IV PRN (19:23)
[2019-10-11] MEDS ORDERED: MoRPHine SULFATE 2 MG/ML CARP IV PRN (19:24)
[2019-10-11] MEDS: LACTATED RINGER'S 1,000 ML IV SCH (23:23)
[2019-10-11 23:47] LABS: Appearance Urine Cloudy (Clear); Bacteria Urine Automated Negative (Negative); Bilirubin Urine Negative (Negative); Blood Urine Negative (Negative); Cast Urine Automated 0 /lpf (0-5); Color Urine Yellow; Epithelial Cell Urine Auto 0-5 /lpf (0-5); Glucose Urine UA Negative (Negative); Ketones Urine Negative (Negative); Leukocyte Esterase Urine Negative (Negative); Nitrite Urine Negative (Negative); Protein Urine Negative (Negative); RBC Urine Automated 0-4 /hpf (0-4); Specific Gravity Urine 1.012 (1.000-1.030); Urobilinogen Urine Negative (Negative)
[2019-10-12] MEDS: LACTATED RINGER'S 1,000 ML IV SCH (05:55)
[2019-10-12] MEDS: ONDANSETRON INJ 2 MG/ML 2 ML VIAL IV PRN ×2 (05:55→15:24)
[2019-10-12 06:13] LABS: Basophils # (auto) 0.02 K/uL (0-0.2); Basophils % (auto) 0.3 %; Eosinophils # (auto) 0.02 K/uL (0-0.5); Eosinophils % (auto) 0.3 %; Hematocrit (blood only) 38.3 % (42-52); Hemoglobin 13.1 g/dL (14.0-18.0); Immature Granulocytes # (auto) 0.02 K/uL (0.00-0.02); Immature Granulocytes % (auto) 0.3 %; Lymphocytes # (auto) 3.14 K/uL (1.2-3.4); Lymphocytes % (auto) 42.3 %; Mean Corpuscular Hemoglobin 31.2 pg (25-34); Mean Corpuscular Hgb Conc 34.2 g/dL (32-36); Mean Corpuscular Volume 91.2 fL (80-100); Mean Platelet Volume 10.3 fL (7.4-10.4); Monocytes # (auto) 0.84 K/uL (0.11-0.59); Monocytes % (auto) 11.3 %; Neutrophils # (auto) 3.39 K/uL (1.4-6.5); Neutrophils % (auto) 45.5 %; Platelet Count 189 K/uL (130-400); RDW Coefficient of Variation 13.3 % (11.5-14.5); White Blood Count 7.43 K/uL (4.8-10.8)
[2019-10-12 06:46] LABS: Albumin Level 3.6 gm/dl (3.4-5.0); BUN Creatinine Ratio 5.9 (10-20); Creatinine Clr Calc Pharmacy 164.3 ml/min; Est GFR (African American) 145.5; Est GFR (Non-African American) 125.5; Potassium 3.8 mmol/L (3.5-5.1)
[2019-10-12 06:48] LABS: Albumin Globulin Ratio 1.2 (0.9-2); Bilirubin,Total 0.9 mg/dl (0.2-1); Globulin 3.1 gm/dl (2.5-4.0); Total Protein 6.7 gm/dl (6.4-8.2)
[2019-10-12] MEDS: PROMETHAZINE HCL 12.5 MG in SODIUM CHLORIDE 0.9% 50 ML IV PRN ×2 (08:11→23:16)
[2019-10-12] MEDS: EMTRICITABINE/TENOFOVIR TAB PO SCH (08:54)
--- NOTE | 2019-10-12 09:34 | Hospitalist Progress Note ---
Date of Service October 12, 2019 Assessment & Plan (1) Abdominal pain: 24 yo M with abdominal pain x 5 days, suspicion for appendicitis. 1. Abdominal Pain - CT abd/pelv wo con in ED: normal appendix, otherwise normal scan - US RLQ: nondiagnostic - surgical consult: low suspiscion for appendicitis, advised CT abd/pelv with oral contrast [ordered] - mixed differential given normal WBC, lack of fever, non-surgical abdomen presentation - differential includes colitis, proctitis, mesenteric ischemia 2. Pain + Nausea - toradol + tylenol - promethazine for nausea 3. HIV ppx - truvada DVT ppx: ad carlos movement, low risk dispo: med/surg Code status: full code Admission and Anticipated Discharge Date Admission Date: October 11, 2019 Supervising Physician Co-Signing Physician Notes I personally examined the patient and verified all dowd points of history and exam, discussed case, and agree with decision making with Dr Faust. abdominal pain x~5 days - first started abruptly no inciting factor - in the shower - vague and diffuse. then progressed the next day to include nausea/vomiting/food intolerance. no real change in bowels - about once a day, soft. ongoing nausea/vomiting. fever. pain started to migrate to R lower abdomen but not necessarily worsen in intensity. vitals noted nad heent nc at mmm breathing unlabored no accessory muscles good effort skin no rashes no pallor or icterus. abd soft nd. RLQ tenderness but no guarding no rebound. focal but probably only moderate. mild moderate RUQ tenderness as well but without guarding/rebound. remainder of abdomen benign. abdominal pain - vague but clearly present and persistent. ?evolving appen dicitis vs viral inflammatory (adenitis, nonspecific enteritis?) vs other. stable but symptomatic - concerning about the evolution of sx over several days so doubt outpt f/u would be safe until situation "declares itself" more clearly. serial exams, surgical eval for second opinion on abdominal pain. Subjective Attests to baseline abdominal pain 2/10, up to 4/10 with palpation and sudden sharp pangs of pain. + Nausea with pain, no vomiting. Hasn't been able to keep any food or water done the last 5 days. No diarrhea. Pain initially radiated throughout whole abdomen, now restricted to RLQ. Hx cholecystectomy, no other abdominal surgeries. No trauma to area. Recent hx proctitis in August, however states this pain is markedly different, and not having pain with bowel movements at this time. Denies fevers or chills. Review of Systems Constitutional: no fever, no chills, no body aches and no fatigue Respiratory: no cough and no dyspnea Cardiovascular: no chest pain, no dyspnea and no edema Gastrointestinal: + abdominal pain (pain after eating) and + nausea; no vomiting, no cramping, no change in stools, no constipation and no diarrhea/loose stools Physical Exam Constitutional: cooperative; no acute distress and not ill appearing Neck: normal visual inspection Respiratory: normal respiratory effort and able to speak in complete sentences; no respiratory distress, no labored breathing, no retractions, no cough and no audible wheezes Auscultation: lungs clear to auscultation bilaterally; no crackles, no rales, no rhonchi and no wheezes Cardiovascular: Rate/Rhythm: regular rate and regular rhythm Heart Sounds: normal S1 and normal S2; no gallop, no murmur and no cardiac rub Vessels: posterior tibial pulses present Extremities: no pedal edema and no edema Gastrointestinal (Abdomen): Inspection/Auscultation: abdomen normal to inspection and + hyperactive bowel sounds; abdomen not distended Percussion/Palpation: + abdomen tender (RUQ, RLQ), abdomen soft and normal to percussion; no guarding, abdomen not rigid and no abdominal mass No significant pain at McBurney's point Results & Data Results & Data ([facility]) Vital Signs (Past 12 Hours) Vital Signs Temp Pulse Resp BP BP Pulse Ox 10/12/19 07:38 37.2 C 76 16 136/89 95 10/12/19 01:13 37.4 C 72 16 142/85 H 98 Laboratory Results WBC 7.43 K/uL (4.8-10.8) 10/12/19 05:24 RBC 4.20 M/uL (4.7-6.1) L 10/12/19 05:24 Hgb 13.1 g/dL (14.0-18.0) L 10/12/19 05:24 Hct 38.3 % (42-52) L 10/12/19 05:24 MCV 91.2 fL (80-100) 10/12/19 05:24 MCH 31.2 pg (25-34) 10/12/19 05:24 MCHC 34.2 g/dL (32-36) 10/12/19 05:24 RDW Std Deviation 44.0 fL (36.4-46.3) 10/12/19 05:24 RDW Coeff of Marilyn 13.3 % (11.5-14.5) 10/12/19 05:24 Plt Count 189 K/uL (130-400) 10/12/19 05:24 MPV 10.3 fL (7.4-10.4) 10/12/19 05:24 Immature Gran % (Auto) 0.3 % 10/12/19 05:24 Neut % (Auto) 45.5 % 10/12/19 05:24 Lymph % (Auto) 42.3 % 10/12/19 05:24 [place] % (Auto) 11.3 % 10/12/19 05:24 Eos % (Auto) 0.3 % 10/12/19 05:24 Baso % (Auto) 0.3 % 10/12/19 05:24 Immature Gran # (Auto) 0.02 K/uL (0.00-0.02) 10/12/19 05:24 Neut # (Auto) 3.39 K/uL (1.4-6.5) 10/12/19 05:24 Lymph # (Auto) 3.14 K/uL (1.2-3.4) 10/12/19 05:24 [place] # (Auto) 0.84 K/uL (0.11-0.59) H 10/12/19 05:24 Eos # (Auto) 0.02 K/uL (0-0.5) 10/12/19 05:24 Baso # (Auto) 0.02 K/uL (0-0.2) 10/12/19 05:24 Sodium 138 mmol/L (136-145) 10/12/19 05:24 Potassium 3.8 mmol/L (3.5-5.1) D 10/12/19 05:24 Chloride 105 mmol/L (98-107) 10/12/19 05:24 Carbon Dioxide 28 mmol/L (21-32) 10/12/19 05:24 Anion Gap 6.0 (3-11) 06/10/20 05:24 BUN 5 mg/dl (7-18) L 10/12/19 05:24 Creatinine 0.82 mg/dl (0.6-1.4) 10/12/19 05:24 Est Cr Clr Drug Dosing 164.3 ml/min 10/12/19 05:24 Est GFR ( Amer) 145.5 10/12/19 05:24 Est GFR (Non-Af Amer) 125.5 10/12/19 05:24 BUN/Creatinine Ratio 5.9 (10-20) L 10/12/19 05:24 Glucose 92 mg/dl (70-99) 10/12/19 05:24 Lactate 1.5 mmol/L (0.4-2.0) 10/11/19 10:38 Calcium 9.0 mg/dl (8.5-10.1) 10/12/19 05:24 Total Bilirubin 0.9 mg/dl (0.2-1) 10/12/19 05:24 Direct Bilirubin 0.2 mg/dl (0-0.2) 10/11/19 10:09 AST 9 U/L (15-37) L 10/12/19 05:24 ALT 32 U/L (12-78) 10/12/19 05:24 Alkaline Phosphatase 57 U/L (45-117) 10/12/19 05:24 Total Protein 6.7 gm/dl (6.4-8.2) 10/12/19 05:24 Albumin 3.6 gm/dl (3.4-5.0) 10/12/19 05:24 Globulin 3.1 gm/dl (2.5-4.0) 10/12/19 05:24 Albumin/Globulin Ratio 1.2 (0.9-2) 10/12/19 05:24 Lipase 136 U/L (73-393) 10/11/19 10:09 Urine Color Yellow 10/11/19 Unknown Urine Appearance Cloudy (Clear) A 10/11/19 Unknown Urine pH 7.0 (4.5-7.5) 10/11/19 Unknown Ur Specific [place] 1.012 (1.000-1.030) 10/11/19 Unknown Urine Protein Negative (Negative) 10/11/19 Unknown Urine Glucose (UA) Negative (Negative) 10/11/19 Unknown Urine Ketones Negative (Negative) 10/11/19 Unknown Urine Blood Negative (Negative) 10/11/19 Unknown Urine Nitrite Negative (Negative) 10/11/19 Unknown Urine Bilirubin Negative (Negative) 10/11/19 Unknown Urine Urobilinogen Negative (Negative) 10/11/19 Unknown Ur Leukocyte Esterase Negative (Negative) 10/11/19 Unknown Urine WBC (Auto) 1-5 /hpf (0-5) 10/11/19 Unknown Urine RBC (Auto) 0-4 /hpf (0-4) 10/11/19 Unknown U Hyaline Cast (Auto) 0 /lpf (0-5) 10/11/19 Unknown U Epithel Cells (Auto) 0-5 /lpf (0-5) 10/11/19 Unknown Urine Bacteria (Auto) Negative (Negative) 10/11/19 Unknown Adenovirus (PCR) Not Detected (NotDetected) 10/11/19 11:32 B. pertussis DNA (PCR) Not Detected (NotDetected) 10/11/19 11:32 B.parapertussis DNA PCR Not Detected (NotDetected) 10/11/19 11:32 C. pneumoniae DNA (PCR) Not Detected (NotDetected) 10/11/19 11:32 Coronavirus OC43 (PCR) Not Detected (NotDetected) 10/11/19 11:32 Coronavirus HKU1 (PCR) Not Detected (NotDetected) 10/11/19 11:32 Coronavirus 229E (PCR) Not Detected (NotDetected) 10/11/19 11:32 Coronavirus NL63 (PCR) Not Detected (NotDetected) 10/11/19 11:32 HIV 1&2 Ab/P24 Ag 4thGn Neg (Neg) 10/11/19 10:09 Human Metapneumovir PCR Not Detected (NotDetected) 10/11/19 11:32 Influenza Type A (PCR) Not Detected (NotDetected) 10/11/19 11:32 Influenza Type B (PCR) Not Detected (NotDetected) 10/11/19 11:32 M. pneumoniae (PCR) Not Detected (NotDetected) 10/11/19 11:32 Parainfluenza 1 (PCR) Not Detected (NotDetected) 10/11/19 11:32 Parainfluenza 2 (PCR) Not Detected (NotDetected) 10/11/19 11:32 Parainfluenza 3 (PCR) Not Detected (NotDetected) 10/11/19 11:32 Parainfluenza 4 (PCR) Not Detected (NotDetected) 10/11/19 11:32 RSV (PCR) Not Detected (NotDetected) 10/11/19 11:32 Entero/Rhino (PCR) Not Detected (NotDetected) 10/11/19 11:32 Resident Activity Tracking Resident Involvement: Resident Care Provided Care Provided: Adult Hospital Medicine (1) Abdominal pain Abdominal location: unspecified location Qualified Code(s): R10.9 - Unspecified abdominal pain
--- NOTE | 2019-10-12 15:02 | Surgery Consultation ---
Date of Consultation October 12, 2019 Assessment & Plan (1) Abdominal pain: 24 year-old male with sudden onset of nausea and vomiting on Thursday with persistent nausea and vomiting presented to ED on 10/10/2019, CT scan of abdomen and pelvis with IV contrast showing no appendicitis. discharged home. 10/11/2019: Presented back to ED with persistent symptoms and abdominal pain. Ultrasound of appendix not visualized. t. bili, lfts, lipase wnl. leukocytosis resolved. Persistent nausea and abdominal pain. Plan: Unsure etiology of patients abdominal pain or nausea. Could be secondary to his medications/marijuana use, underlying GI issues, retained gallstones in biliary system (unlikely given normal lfts, t.bili). Scheduled for outpatient colonoscopy next Thursday. Would recommend repeat CT scan abd/pelvis with IV and oral contrast Recommend GI consultation for evaluation Continue clears, pain management will follow Dr. Chau has seen and examined pt, please see addendum for further recommendations/plan. Supervising Physician Co-Signing Physician Notes I interviewed and examined this patient I agree with the above note. The etiology of his abdominal discomfort is unclear. There was no etiology identified by CT scan. CT scan with oral contrast may be of some benefit and will order that. He is also on Truvada who side effects may include abdominal pain with nausea and vomiting. Would also recommend a GI consult. They were involved with his case back in August and have scheduled a colonoscopy. That was supposed to occur next Thursday. Will await their opinion. He does not have evid ence of peritonitis. There is no indication for immediate surgery. History of Present Illness Reason for Consultation: abdominal pain, nausea Requesting Physician: Tori Faust MD Attending Physician: Bro Watkins DO History of Present Illness Lasha is a 24 year-old male who originally presented to emergency department on 10/10/2019 due to three day history of nausea and vomiting. He states on Thursday he had sudden onset of nausea while in the shower and had vomiting. Had one bite of breakfast sandwich and then could not finish. States nausea then woke him up at 6 am on Thursday and had vomiting from 6-4 pm. Only drank fluids through the day. Presented to ED on Thursday due to same symptoms. Had CT scan of abdomen and pelvis with IV contrast only which showed no appendicitis and was discharged home on . He then presented back to emergency department yesterday due to same symptoms and no improvement. He had similar symptoms back in August but was found to have proctitis at the time. Has outpatient colonoscopy scheduled for next Thursday. Had issues with nausea, vomiting, and abdominal pain in 2017 in which he had cholecystectomy due to gallstones. Family history positive for gallbladder issues. Denies family history of colitis, ulcerative colitis, crohn's disease, or diverticulitis. He does state he smokes Marijuana about 3x/week. Denies of fever at home, chills, rectal bleeding, blood in stools, black/tarry stools. Had an ultrasound of appendix yesterday which was not visualized. Leukocytosis of 12k upon ER presentation on 10/10/2019 and has since resolved. T. bili was 1.1 now wnl. LFTS and lipase have been wnl. Allergies Allergy/AdvReac Type Severity Reaction Status Date / Time No Known Allergies Allergy Unverified 10/11/19 12:39 Home Medications Home Medications Medication Instructions Recorded Confirmed Type emtricitabine-tenofovir (TDF) 1 tab PO QAM #0 12/19/17 10/11/19 History [Truvada] ondansetron 4 mg PO Q8H PRN #30 tab 10/10/19 10/11/19 Rx peg 3350-electrolytes 236 240 ml PO .COMPLEX #4000 ml 10/12/19 Rx gram-22.74 gram-6.74 gram-5.86 gram solution Patient History Medical History COVID-19 virus detected On pre-exposure prophylaxis for HIV Proctitis Surgical History History of cholecystectomy (Acute) History of surgery (Acute) left tibia and fibula Social History Preferred Language: Lithuanian Communication Ability: Effective Cloth Layer Required: No Beliefs That Will Affect Care: None marital status: Single Current Living Situation: Alone Current Living Situation Comment: Apartment current occupational status: student Other Information That Helps Us Care for You: No Feels Safe at Home: Yes Safety Concerns: Feels Safe At This Time Smoking Status: Never smoker Second Hand Exposure: No ; Hx Alcohol Use: Yes Alcohol type: beer, wine and hard liquor Hx Substance Use: No Sexual Orientation Comment: homosexual Sexual Activity: has been sexually active within the last 12 months Review of Systems Review of Systems: All systems reviewed & are unremarkable except as noted in HPI & below Physical Exam Constitutional: WD/WN, vitals as above no acute distress and not ill appearing Respiratory: normal respiratory effort, lungs clear to auscultation Cardiovascular: RRR, no murmur, no edema Gastrointestinal (Abdomen): Inspection/Auscultation: abdomen normal to inspection, + abdomen distended (mild) and normal bowel sounds Percu ssion/Palpation: + abdomen tender (RUQ and periumbilical region ) and abdomen soft; no guarding and abdomen not rigid Skin: no rashes, warm and dry Psychiatric: Orientation: alert and oriented x 3 Results & Data Vital Signs (Past 12 Hours) Vital Signs Temp Pulse Resp BP Pulse Ox 10/12/19 07:38 37.2 C 76 16 136/89 95 Laboratory Results 10/12/19 10/12/19 10/11/19 Range/Units 05:24 05:24 Unknown WBC 7.43 (4.8-10.8) K/uL RBC 4.20 L (4.7-6.1) M/uL Hgb 13.1 L (14.0-18.0) g/dL Hct 38.3 L (42-52) % MCV 91.2 (80-100) fL MCH 31.2 (25-34) pg MCHC 34.2 (32-36) g/dL RDW Std Deviation 44.0 (36.4-46.3) fL RDW Coeff of Marilyn 13.3 (11.5-14.5) % Plt Count 189 (130-400) K/uL MPV 10.3 (7.4-10.4) fL Immature Gran % (Auto) 0.3 % Neut % (Auto) 45.5 % Lymph % (Auto) 42.3 % [place] % (Auto) 11.3 % Eos % (Auto) 0.3 % Baso % (Auto) 0.3 % Immature Gran # (Auto) 0.02 (0.00-0.02) K/uL Neut # (Auto) 3.39 (1.4-6.5) K/uL Lymph # (Auto) 3.14 (1.2-3.4) K/uL [place] # (Auto) 0.84 H (0.11-0.59) K/uL Eos # (Auto) 0.02 (0-0.5) K/uL Baso # (Auto) 0.02 (0-0.2) K/uL Sodium 138 (136-145) mmol/L Potassium 3.8 D (3.5-5.1) mmol/L Chloride 105 (98-107) mmol/L Carbon Dioxide 28 (21-32) mmol/L Anion Gap 6.0 (3-11) BUN 5 L (7-18) mg/dl Creatinine 0.82 (0.6-1.4) mg/dl Est Cr Clr Drug Dosing 164.3 ml/min Est GFR ( Amer) 145.5 Est GFR (Non-Af Amer) 125.5 BUN/Creatinine Ratio 5.9 L (10-20) Glucose 92 (70-99) mg/dl Calcium 9.0 (8.5-10.1) mg/dl Total Bilirubin 0.9 (0.2-1) mg/dl AST 9 L (15-37) U/L ALT 32 (12-78) U/L Alkaline Phosphatase 57 (45-117) U/L Total Protein 6.7 (6.4-8.2) gm/dl Albumin 3.6 (3.4-5.0) gm/dl Globulin 3.1 (2.5-4.0) gm/dl Albumin/Globulin Ratio 1.2 (0.9-2) Urine Color Yellow Urine Appearance Cloudy A (Clear) Urine pH 7.0 (4.5-7.5) Ur Specific [place] 1.012 (1.000-1.030) Urine Protein Negative (Negative) Urine Glucose (UA) Negative (Negative) Urine Ketones Negative (Negative) Urine Blood Negative (Negative) Urine Nitrite Negative (Negative) Urine Bilirubin Negative (Negative) Urine Urobilinogen Negative (Negative) Ur Leukocyte Esterase Negative (Negative) Urine WBC (Auto) 1-5 (0-5) /hpf Urine RBC (Auto) 0-4 (0-4) /hpf U Hyaline Cast (Auto) 0 (0-5) /lpf U Epithel Cells (Auto) 0-5 (0-5) /lpf Urine Bacteria (Auto) Negative (Negative) Diagnostic Findings ABDOMEN AND PELVIS CT WITH IV CONTRAST CT DOSE: 694.98 mGycm HISTORY: Right lower quadrant pain. Assess for appendicitis. TECHNIQUE: Multiaxial CT images of the abdomen and pelvis were performed following the use of intravenous contrast. A dose lowering technique was utilized adhering to the principles of ALARA. COMPARISON STUDY: Abdomen and pelvis CT 08/30/2019. FINDINGS: The lung bases are clear. No pneumoperitoneum. No pneumatosis. No fractures within the visualized osseous structures. Cholecystectomy. The liver, spleen, adrenal glands, pancreas, and kidneys are unremarkable. No retroperitoneal lymphadenopathy. The bladder is unremarkable. No bowel wall thickening or obstruction. Normal appendix. IMPRESSION: 1. Normal appendix. 2. No bowel wall thickening or obstruction. 3. No hydronephrosis. 4. Prior cholecystectomy. APPENDIX ULTRASOUND HISTORY: Right lower quadrant pain. ?appendicitis COMPARISON: None. FINDINGS: Transabdominal scanning of the right lower quadrant was performed. The appendix was not identified. There are no fluid collections or masses within the right lower quadrant. IMPRESSION: The appendix was not identified. (1) Abdominal pain Abdominal location: unspecified location Qualified Code(s): R10.9 - Unspecified abdominal pain
[2019-10-12] MEDS ORDERED: IOVERSOL 100ml IV PRN (18:13)
--- NOTE | 2019-10-12 18:18 | CT Scan Report ---
CT abd pelvis oral and IV con CLINICAL HISTORY: Periumbilical abdominal pain, nausea, vomiting. COMPARISON STUDY: 10/10/2019 TECHNIQUE: The patient was scanned following administration of dilute oral contrast, and in a dynamic helical fashion during intravenous administration of 94 cc of Optiray 320. A dose lowering techniqu e was utilized adhering to the principles of ALARA. CT DOSE: 796.86 mGycm FINDINGS: Lower chest: The heart is normal in size and configuration, without pericardial effusion. The lung ba ses and pleural spaces are clear. Liver: The contrast-enhanced liver is normal in size, contour, and attenuation. There is no intrahepa tic biliary ductal dilatation. The hepatic veins and portal veins are patent. Gallbladder: Surgically absent Spleen: Normal in size and attenuation. Pancreas: Unremarkable. Adrenal glands: Unremarkable. Kidneys: There is symmetric renal cortical enhancement. The kidneys are normal in size without hydron ephrosis. Bowel: There are borderline dilated small bowel loops. No transition zone is visualized to indicate b owel obstruction. The appendix appears normal. There is no acute diverticulitis. Peritoneum: There is no intraperitoneal free air or abdominal ascites. Vasculature: The abdominal aorta is normal in course and caliber. Adenopathy: None. Pelvic viscera: The bladder, and pelvic viscera are unremarkable. Skeletal structures: No destructive osseous lesions are seen. IMPRESSION: 1. Borderline dilated small bowel loops. A mild ileus cannot be excluded 2. No evidence of bowel obstruction. No evidence of free air 3. No acute inflammatory changes. Normal appendix 4. Surgically absent gallbladder 5. No hydronephrosis. ACT 112: Negative or not required by law. Electronically signed by: Juvenal Cruz M.D. 10/12/2019 6:17 PM
--- NOTE | 2019-10-12 19:40 | Billing Data ---
Date of Service October 12, 2019 Coding Level of Care Code 48905 Subseq Obs Care Lvl 3
--- NOTE | 2019-10-13 07:47 | Hospitalist Progress Note ---
Date of Service October 13, 2019 Assessment & Plan (1) Abdominal pain: 24 yo M with abdominal pain x 5 days, suspicion for appendicitis. 1. Abdominal Pain - CT abd/pelv wo con in ED: normal appendix, otherwise normal scan - US RLQ: nondiagnostic - surgical consult: low suspiscion for appendicitis, advised CT abd/pelv with oral contrast [ordered] - mixed differential given normal WBC, lack of fever, non-surgical abdomen presentation - differential includes colitis, proctitis, mesenteric ischemia 2. Pain + Nausea - toradol + tylenol - promethazine for nausea 3. HIV ppx - truvada DVT ppx: ad carlos movement, low risk dispo: med/surg Code status: full code Admission and Anticipated Discharge Date Admission Date: October 11, 2019 Results & Data Results & Data ([facility]) Vital Signs (Past 12 Hours) Vital Signs Temp Pulse Resp BP Pulse Ox 10/12/19 23:49 36.8 C 52 L 14 142/93 H 100 10/12/19 20:52 37.3 C (1) Abdominal pain Abdominal location: unspecified location Qualified Code(s): R10.9 - Unspecified abdominal pain
[2019-10-13 08:41] LABS: Hematocrit (blood only) 40.6 % (42-52); Hemoglobin 13.8 g/dL (14.0-18.0); Mean Corpuscular Hemoglobin 31.1 pg (25-34); Mean Corpuscular Volume 91.4 fL (80-100); Mean Platelet Volume 9.6 fL (7.4-10.4); Platelet Count 182 K/uL (130-400); RDW Coefficient of Variation 13.2 % (11.5-14.5); RDW Standard Deviation 43.8 fL (36.4-46.3); Red Blood Count 4.44 M/uL (4.7-6.1); White Blood Count 5.09 K/uL (4.8-10.8)
[2019-10-13] MEDS: EMTRICITABINE/TENOFOVIR TAB PO SCH (08:50)
--- NOTE | 2019-10-13 09:50 | Surgery Progress Note ---
Date of Service October 13, 2019 Assessment & Plan (1) Abdominal pain: 24 year-old male with sudden onset of nausea and vomiting on Thursday with persistent nausea and vomiting presented to ED on 10/10/2019, CT scan of abdomen and pelvis with IV contrast showing no appendicitis. discharged home. 10/11/2019: Presented back to ED with persistent symptoms and abdominal pain. Ultrasound of appendix not visualized. t. bili, lfts, lipase wnl. leukocytosis resolved. Persistent nausea and a bdominal pain. 10/12/2019 CT scan abd and pelvis with oral and IV contrast unremarkable other than mild ileus 10/13/2019 abdominal pain improved + bowel movement no vomiting no leukocytosis Plan: Unsure etiology of patients abdominal pain or nausea. Could be secondary to his medications/marijuana use, underlying GI issues. Repeat CT scan with oral contrast was unremarkable. No surgical etiology for his pain. Diet advanced to regular if tolerates regular diet, okay from surgical standpoint for discharge Should follow-up with GI as outpatient given scheduled outpatient colonoscopy next Thursday. our services signing off, thank you for consultation, please call with questions/concerns Dr. Chau has seen and examined pt, please see addendum for further recommendations/plan. Supervising Physician Co-Signing Physician Notes I interviewed and examined this patient and agree with the above note. His pain and tenderness have decreased significantly. Repeat CT with IV and oral contrast demonstrated no evidence of an etiology for the pain. The appendix was stated to be normal. I explained all that to the patient. There is no indication for surgical intervention at this time. Subjective abdominal pain better today, only pain when pressed on had bowel movement which made abdominal pain less no vomiting diet advanced to regular diet, tray brought to room Physical Exam Constitutional: WD/WN, vitals as above no acute distress Respiratory: normal respiratory effort Gastrointestinal (Abdomen): Inspection/Auscultation: abdomen normal to inspection; abdomen not distended Percussion/Palpation: + abdomen tender (RUQ and periumbilical, improved) and abdomen soft; abdomen not rigid Skin: no rashes, warm and dry Psychiatric: A+Ox3, euthymic affect Results & Data Vital Signs (Past 12 Hours) Vital Signs Temp Pulse Resp BP BP Pulse Ox 10/13/19 07:54 37.0 C 58 L 16 116/74 100 10/12/19 23:49 36.8 C 52 L 14 142/93 H 100 Laboratory Results 10/13/19 Range/Units 08:28 WBC 5.09 (4.8-10.8) K/uL RBC 4.44 L (4.7-6.1) M/uL Hgb 13.8 L (14.0-18.0) g/dL Hct 40.6 L (42-52) % MCV 91.4 (80-100) fL MCH 31.1 (25-34) pg MCHC 34.0 (32-36) g/dL RDW Std Deviation 43.8 (36.4-46.3) fL RDW Coeff of Marilyn 13.2 (11.5-14.5) % Plt Count 182 (130-400) K/uL MPV 9.6 (7.4-10.4) fL Diagnostic Findings CT abd pelvis oral and IV con CLINICAL HISTORY: Periumbilical abdominal pain, nausea, vomiting. COMPARISON STUDY: 10/10/2019 TECHNIQUE: The patient was scanned following administration of dilute oral contrast, and in a dynamic helical fashion during intravenous administration of 94 cc of Optiray 320. A dose lowering technique was utilized adhering to the principles of ALARA. CT DOSE: 796.86 mGycm FINDINGS: Lower chest: The heart is normal in size and configuration, without pericardial effusion. The lung bases and pleural spaces are clear. Liver: The contrast-enhanced liver is normal in size, contour, and attenuation. There is no intrahepatic biliary ductal dilatation. The hepatic veins and portal veins are patent. Gallbladder: Surgically absent Spleen: Normal in size and attenuation. Pancreas: Unremarkable. Adrenal glands: Unremarkable. Kidneys: There is symmetric renal cortical enhancement. The kidneys are normal in size without hydronephrosis. Bowel: There are borderline dilated small bowel loops. No transition zone is vi sualized to indicate bowel obstruction. The appendix appears normal. There is no acute diverticulitis. Peritoneum: There is no intraperitoneal free air or abdominal ascites. Vasculature: The abdominal aorta is normal in course and caliber. Adenopathy: None. Pelvic viscera: The bladder, and pelvic viscera are unremarkable. Skeletal structures: No destructive osseous lesions are seen. IMPRESSION: 1. Borderline dilated small bowel loops. A mild ileus cannot be excluded 2. No evidence of bowel obstruction. No evidence of free air 3. No acute inflammatory changes. Normal appendix 4. Surgically absent gallbladder 5. No hydronephrosis. (1) Abdominal pain Abdominal location: unspecified location Qualified Code(s): R10.9 - Unspecified abdominal pain
--- NOTE | 2019-10-13 10:00 | Discharge Summary ---
Date of Service October 13, 2019 Admission HPI Per Admitting Provider Lasha Fletcher is a 24 year old male who presents to the ER with fever and ongoing nausea, vomiting, abdominal pain and occasional diarrhea for the past 4 days. He was discharged from the ER yesterday with similar symptoms but no fever. CT A/P at that time showed normal appendix, no bowel wall thickening or obstruction, no hydronephrosis. He was discharged with ondansetron but despite taking this continued to have nausea and vomiting today. He does admit to smoking marijuana after being discharged but does not think this contributed towards his current symptoms and is concerned his marijuana use was blamed for prior episodes of nausea and vomiting which subsequently turned out to be cholelithiasis. He was given IV ondansetron in the ER he currently not feeling nauseous when seen but still having significant abdominal pain. For past 4 days abdominal pain has been constant and generalized to his whole abdomen but today more localized in RLQ. Current severity 2/10, at worst 9/10. No radiation. Associated loose stool, once a day in AM, semi-solid. He reports having similar symptoms in August and diagnosed with proctitis at that time based on CT findings -> treated with doxycycline and one dose of Rocephin. However he was having anal pain at that time which he is not currently experiencing. He reports receiving anal sex once after this but his partner was using protection and this was in mid-September. He is due a colonoscopy as follow up after the proctitis episode in approximately 1 week. No sore throat, upper respiratory symptoms, shortness of breath, chest pain, dysuria, change in urine frequency/smell. Admission Exam Per Admitting Provider Constitutional: WD/WN, vitals as above Eyes: + anicteric sclerae; normal pupil size ENMT: external ear and nose normal, oropharynx normal Neck: trachea midline, no thyromegaly Respiratory: normal respiratory effort, lungs clear to auscultation Cardiovascular: RRR, no murmur, no edema Gastrointestinal (Abdomen): Inspection/Auscultation: abdomen normal to inspection and normal bowel sounds Percussion/Palpation: + abdomen tender (RLQ, mild elsewhere) and abdomen soft; no guarding and abdomen not rigid Musculoskeletal: no cyanosis or clubbing, extremities motor strength 5/5 Skin: no rashes, warm and dry Neurologic: moves all extremities and awake; not confused Psychiatric: A+Ox3, euthymic affect Genitourinary: no CVA tenderness Principal Diagnosis abdominal pain, viral gastroenteritis Discharge Exam Constitutional WD/WN, vitals as above + thin; no acute distress Neck normal visual inspection Respiratory normal respiratory effort, lungs clear to auscultation no labored breathing and no audible wheezes Auscultation: lungs clear to auscultation bilaterally; no crackles, no rales, no rhonchi and no wheezes Cardiovascular RRR, no murmur, no edema Heart Sounds: normal S1 and normal S2 Extremities: normal capillary refill; no calf tenderness and no edema Gastrointestinal (Abdomen) Inspection/Auscultation: abdomen normal to inspection and normal bowel sounds; abdomen not distended Percussion/Palpation: + abdomen tender (mild, RLQ) and abdomen soft; no guarding , abdomen not rigid and abdomen not firm Discharge Data Allergies Allergy/AdvReac Type Severity Reaction Status Date / Time No Known Allergies Allergy Unverified 10/11/19 12:39 Consultations 10/11/19 13:16 ED Decision to Admit Stat 10/12/19 11:26 Consult General Surgery Routine Ordered Studies 10/11/19 15:04 US appendix Routine 10/12/19 14:45 CT abd pelvis oral and IV con Routine Hospital Course (1) Abdominal pain: 24 yo M with abdominal pain x 5 days, suspicion for appendicitis. CT abd/pelv with contrast showed no appendicitis, some indication of ileus, no other abnormalities. Evaluated by surgery, deemed non-surgical. Improved with anti-emetics and pain control. Most likely viral gastroenteritis causing ileus. All other medical conditions managed per home regimen. Total Time Total Time Spent Total Time Spent (In Minutes): <30 Discharge Plan Discharge Items Patient Disposition: Home - Self-Care Reason For Visit: LLQ ABDOMINAL PAIN,INTRACTABLE VOMITING Discharge Diagnosis: RLQ abdominal pain, viral gastroenteritis Activity: Per Instructions section Non-emergency contact: Primary Care Provider Call non-emergency contact if: you have any medication questions and your symptoms worsen Follow-up/Referrals: Genaro Matos [Primary Care Provider] - Nettie Faust MD [Resident] - 10/19/19 4:00 pm (Please, follow up with Dr. Faust on ThursdayOctober 18 at 4:00 pm. *The office is located in [address] of [facility], next to this hospital. If you need to change this appointment, call the office at [phone].) Diet: Regular Addtl Attending Provider Instructions: You were seen in the hospital for abdominal pain and intractable vomiting concerning for appendicitis. A CT abdomen with oral contrast showed a normal appendix and no signs of infection. There were some indicators of intestinal slowing or 'ileus', which is most often secondary to a viral gastroenteritis or "stomach bug". The pain should be improving and resolve on its own in a few days. If you have ongoing nausea, you can take Zofran once every 4-8 hours as needed to help keep fluids and food down. Electrolyte fluids like gatorade, water, and saltine crackers can help keep you properly hydrated. Pending Studies at Discharge: No Stand-Alone Forms: My [facility], Smoking Cessation Medications and DC Order Prescriptions: Continued Truvada 200-300 mg Tablet 1 tab PO QAM Qty: 0 RF: 0 peg 3350-electrolytes [Golytely] 236-22.74-6.74 -5.86 gram recon soln 240 ml PO .COMPLEX Qty: 4000 RF: 0 ondansetron 4 mg tablet,disintegrating 4 mg PO Q8H PRN (Reason: nausea and vomiting) 5 Days Qty: 30 RF: 0 Discharge Orders: Discharge Order (Routine); Ordered 10/13/19 Ordered By: Nettie Pimentel/Other Patient Handouts: Ileus Admission Data Admit Date/Time: 10/11/19 15:02 Attending Provider: Bro Watkins Admit Provider: Jose Nichole Primary Care Provider: Genaro Matos Other Providers: Jose Nichole ; Nettie Faust ; Irvin Chau Other Interventions: Discharge Summary Assessment (RN) Last Done: 10/13/19 14:26 DC Date/Time DO NOT enter until pt leaves facility: 10/13/19 15:10 Supervising Physician Co-Signing Physician Notes I personally examined the patient and verified all dowd points of history and exam, discussed case, and agree with decision making with Dr Faust. bored. pain improved. able to eat wtihout vomiting - main complaint eating was that the eggs were gross. vitals noted nad heent nc at mmm breathing unlabored no accessory muscles good effort skin no rashes no pallor or icterus. abd soft nd. RLQ tenderness now mild RUQ normal remainder of abdomen benign. no guarding no rebound no rigidity. abdominal pain - vague presentation concerning for evolution to appy but fortunately regressed. most c/w nonspecific inflammatory enteritis such as viral. for scope next week -- will be helpful given this episode and proctitis in august - particuarly to eval for IBD. stable for home. Resident Activity Tracking Resident Involvement: Resident Care Provided Care Provided: Adult Hospital Medicine
--- NOTE | 2019-10-13 19:36 | Billing Data ---
Date of Service October 13, 2019 Coding Level of Care Code D/C Day Management <30 mins
== END 2019-10-13 15:10 | disposition home or self-care (01) ==
LOC: 2W 09:16 → ED 09:16 → SUATTDRO 15:02 → 2W 17:52 → 3E 10-12 01:09